=== PATIENT | female | born 1990 | race Two or more races ===

== ENCOUNTER 2016-04-24 12:01 | Emergency (ER) | payer OTHER ==
[~2016-04-24] VITALS: Ht 152.4 cm; Wt 57.6 kg
[~2016-04-24 12:01] MED LIST: AMOX1TAB61 PO; NAPR500T8 PO; OXYC-323 PO; Vantin PO
[2016-04-24 12:56] LABS: BILIRUBIN,URINE NEGATIVE (NEG); GLUCOSE,URINE NEGATIVE (NEG); NITRITE,URINE NEGATIVE (NEG); PROTEIN,URINE 100 mg/dL (NEG-TRACE); UROBILINOGEN,URINE 0.2 mg/dL (0.2 mg/dL)
[2016-04-24 13:09] LABS: BACTERIA,URINE 0 /HPF (0-FEW); WBC,URINE TNTC /HPF (0-4)
[2016-04-24] MEDS ORDERED: IV NORMAL SALINE 1000ML BAG 1,000 ML IV ONE (13:30)
[2016-04-24 14:01] LABS: BASO % 0 % (0-3); EOS % 1 % (0-3); HEMATOCRIT 38.5 % (36.0-47.0); HEMOGLOBIN 12.3 g/dL (12.0-15.5); LYMPH # 1.1 x10^3/uL (1.0-4.8); LYMPH % 10 % (24-48); MEAN CORPUSCULAR HEMOGLOBIN 25 pg (25-35); MEAN CORPUSCULAR HGB CONC 32 g/dL (31-37); MEAN CORPUSCULAR VOLUME 78 fL (79-100); MONO % 4 % (0-9); NEUT % 85 % (31-73); PLATELET COUNT 249 x10^3/uL (140-400); RED BLOOD COUNT 4.96 x10^6/uL (3.50-5.40); RED CELL DISTRIBUTION WIDTH 13.1 % (11.5-14.5); WHITE BLOOD COUNT 10.9 x10^3/uL (4.0-11.0)
[2016-04-24 14:04] LABS: CALCIUM 9.1 mg/dL (8.5-10.1); CREATININE 0.6 mg/dL (0.6-1.0); GFR 122.8; POTASSIUM 3.3 mmol/L (3.5-5.1)
[2016-04-24 15:30] VITALS: BP 104/64
[2016-04-24] MEDS ORDERED: CEPHALEXIN 250 MG CAPSULE PO ONE (15:30)
[2016-04-24] MEDS ORDERED: PHENAZOPYRIDINE 200 MG TABLET. PO ONE (15:30)
[2016-04-24] MEDS ORDERED: METRONIDAZOLE 500 MG TABLET. PO ONE (15:30)
[2016-04-24] MEDS ORDERED: METR500T4 PO (16:03)
[2016-04-24] MEDS ORDERED: PHEN-318 PO (16:03)
[2016-04-24] MEDS ORDERED: CEPH-264 PO (16:03)
--- NOTE | 2016-04-24 17:10 | ED.ADGEN ---
Past Medical History Past Medical History: No Pertinent History, Hypotension, Unknown Additional Past Medical Histor: COMPLICATIONS WITH Past Surgical History: , Hysterectomy Alcohol Use: None Drug Use: None Adult General Chief Complaint Chief Complaint: ABDOMINAL PAIN HPI HPI Patient is a 25 year old woman, history of hysterectomy, with complications including damage to the bladder, resulting in hospitalization for severe sepsis , who presents emergency Department with complaint of suprapubic abdominal pain 1 day, with mild back pain. Patient did not take any medications prior to coming to the ED, she is Montenegrin speaking only, and all discussion carried out via language line apartment leasing specialist. Patient denies any nausea or vomiting, any flank pain, any weakness in this or tingling, complains of pain with urination, frequency, no urgency, positive for cramping pain in the superior pubic region times one day. No fevers or chills, no weakness numbness or tingling, no injuries, no discharge or drainage from the vagina. No concerns for STI exposures or contacts. Patient is status post a hysterectomy. Review of Systems Review of Systems Constitutional: Denies fever or chills. [] Eyes: Denies change in visual acuity. [] HENT: Denies nasal congestion or sore throat. [] Respiratory: Denies cough or shortness of breath. [] Cardiovascular: Denies chest pain or edema. [] GI: Positive for suprapubic abdominal pain, no nausea, vomiting, bloody stools or diarrhea. [] : Dysuria, frequency, 1 day, associated with cramping suprapubic abdominal pain. Musculoskeletal: Denies back pain or joint pain. [] Integument: Denies rash. [] Neurologic: Denies headache, focal weakness or sensory changes. [] Endocrine: Denies polyuria or polydipsia. [] Lymphatic: Denies swollen glands. [] Psychiatric: Denies depression or anxiety. [] Current Medications Current Medications Current Medications Medications (Trade) Dose Ordered Sig/Geni Start Time Stop Time Status Last Admin Dose Admin Cephalexin HCl (Keflex) 500 mg 1X ONCE 04/24/16 15:30 04/24/16 15:31 DC 04/24/16 15:39 500 MG Metronidazole (Flagyl) 500 mg 1X ONCE 04/24/16 15:30 04/24/16 15:31 DC 04/24/16 15:40 500 MG Phenazopyridine HCl (Pyridium) 200 mg 1X ONCE 04/24/16 15:30 04/24/16 15:31 DC 04/24/16 15:39 200 MG Sodium Chloride (Iv Sodium Chloride 0.9% 1000ml Bag) 1,000 ml @ 1,000 mls/hr 1X ONCE 04/24/16 13:30 04/24/16 14:29 DC 04/24/16 14:01 1,000 MLS/HR Allergies Allergies Allergies Coded Allergies Type Severity Reaction Last Updated Verified No Known Drug Allergies 05/29/15 No Physical Exam Physical Exam Constitutional: Well developed, well nourished, no acute distress, non-toxic appearance. [] HENT: Normocephalic, atraumatic, bilateral external ears normal, oropharynx moist, no oral exudates, nose normal. [] Eyes: PERRLA, EOMI, conjunctiva normal, no discharge. [] Neck: Normal range of motion, no tenderness, supple, no stridor. [] Cardiovascular:Heart rate regular rhythm, no murmur, S1, S2, rubs or gallops. [] Lungs & Thorax: Bilateral breath sounds clear to auscultation, no wheezing, rhonchi or rales. No chest tenderness or crepitus. [] Abdomen: Bowel sounds normal, soft, mild tenderness palpation in the suprapubic region, no masses, no pulsatile masses. [] Skin: Warm, dry, no erythema, no rash. [] Back: No tenderness, no CVA tenderness. [] Extremities: No tenderness, no cyanosis, no clubbing, ROM intact, no edema. [] Neurologic: Alert and oriented X 3, normal motor function, normal sensory function, no focal deficits noted. [] Psychologic: Affect normal, judgement normal, mood normal. [] Pelvic examination: Patient is status post hysterectomy, external examination is normal, bimanual examination reveals no tenderness, patient with tenderness to palpation of the superior pubic region only, no pelvic pain. Current Patient Data Vital Signs Vital Signs Date Time Temp Pulse Resp B/P Pulse Ox O2 Delivery O2 Flow Rate FiO2 04/24/16 15:30 88 18 104/64 100 Room Air 04/24/16 12:41 99.4 99.4 Lab Values Laboratory Tests Test 04/24/16 12:30 04/24/16 12:36 04/24/16 12:43 Urine Collection Type Unknown Urine Color Yellow Urine Clarity Cloudy Urine pH 6.0 Urine Specific [place] 1.015 Urine Protein 100mg/dL (NEG-TRACE) Urine Glucose (UA) Negativemg/dL (NEG) Urine Ketones (Stick) >=80mg/dL (NEG) Urine Blood Large (NEG) Urine Nitrite Negative (NEG) Urine Bilirubin Negative (NEG) Urine Urobilinogen Dipstick 0.2mg/dL (0.2 mg/dL) Urine Leukocyte Esterase Large (NEG) Urine RBC 11-20/HPF (0-2) Urine WBC Tntc/HPF (0-4) Urine Bacteria 0/HPF (0-FEW) POC Urine HCG, Qualitative Hcg negative (Negative) White Blood Count 10.9x10^3/uL (4.0-11.0) Red Blood Count 4.96x10^6/uL (3.50-5.40) Hemoglobin 12.3g/dL (12.0-15.5) Hematocrit 38.5% (36.0-47.0) Mean Corpuscular Volume 78fL (79-100) L Mean Corpuscular Hemoglobin 25pg (25-35) Mean Corpuscular Hemoglobin Concent 32g/dL (31-37) Red Cell Distribution Width 13.1% (11.5-14.5) Platelet Count 249x10^3/uL (140-400) Neutrophils (%) (Auto) 85% (31-73) H Lymphocytes (%) (Auto) 10% (24-48) L Monocytes (%) (Auto) 4% (0-9) Eosinophils (%) (Auto) 1% (0-3) Basophils (%) (Auto) 0% (0-3) Neutrophils # (Auto) 9.3x10^3uL (1.8-7.7) H Lymphocytes # (Auto) 1.1x10^3/uL (1.0-4.8) Monocytes # (Auto) 0.5x10^3/uL (0.0-1.1) Eosinophils # (Auto) 0.1x10^3/uL (0.0-0.7) Basophils # (Auto) 0.0x10^3/uL (0.0-0.2) Sodium Level 142mmol/L (136-145) Potassium Level 3.3mmol/L (3.5-5.1) L Chloride Level 105mmol/L (98-107) Carbon Dioxide Level 24mmol/L (21-32) Anion Gap 13 (6-14) Blood Urea Nitrogen 9mg/dL (7-20) Creatinine 0.6mg/dL (0.6-1.0) Estimated GFR (Cockcroft-Gault) 122.8 Glucose Level 91mg/dL (70-99) Calcium Level 9.1mg/dL (8.5-10.1) Laboratory Tests 04/24/16 12:43 Laboratory Tests 04/24/16 12:43 Microbiology 04/24/16 Wet Prep - Final, Complete EKG EKG Rhythm strip: Sinus rhythm, heart rate 84 bpm, no ectopy. As interpreted by me. Radiology/Procedures Radiology/Procedures Not indicated. [] Course & Med Decision Making Course & Med Decision Making Pertinent Labs and Imaging studies reviewed. (See chart for details) Patient's examination is consistent with cystitis, no evidence of pyelonephritis , laboratory studies reveal greater than 40 WBCs, with leuk esterase, although no bacteria is noted. There is no abdominal tenderness aside from superior pubic region, no other pelvic tenderness. Laboratory studies are otherwise unremarkable. Patient is urinating quite frequently, which may contributing. Clue cells noted on wet prep, with concern for bacterial vaginosis. Patient initially with a heart rate in the 90s, received IV fluids, laboratory studies, which not reveal any evidence of systemic infection or other concerning findings. On reevaluation she is feeling better, resting comfortably, remains afebrile, discussed findings with both patient concerning for cystitis, bacterial vaginosis, patient is given first dose of Keflex and metronidazole in the ED without issue. We did discuss concerning symptoms that prompt return to the emergency department for additional evaluation, patient is ambulating without difficulty, and denying pain at this time. Importance of follow-up with her GLASS PULVERIZER EQUIPMENT OPERATOR, Dr. Mcdonald, discussed, patient to see him in approximately 1 week to secure, patient return to the ED at any time for any concerning symptoms. She voiced understanding and agreement with this plan, and was given thorough discharge instructions and prescription information, for Keflex, Pyridium, and metronidazole via the language line apartment leasing specialist. Patient discharged home in stable condition with family with plan as above. Jennifer Disclaimer Dragon Disclaimer This electronic medical record was generated, in whole or in part, using a voice recognition dictation system. Departure Impression: Primary Impression: Urinary tract infection Disposition: HOME, SELF-CARE Condition: IMPROVED Scripts Phenazopyridine Hcl (Pyridium)200 Mg [id number] Mg PO TID PRN BLADDER SPASM #9 TAB Prov:SHARON NEUMANN DO 04/24/16 Metronidazole 500 Mg Tablet1 Tab PO BID #13 TAB 1 tablet by mouth twice daily for 7 days. First dose given in the emergency department. Prov:SHARON NEUMANN DO 04/24/16 Cephalexin (Keflex)500 Mg Capsule1 Cap PO BID #9 CAP 1 tablet by mouth twice daily for 5 days to treat infection. First dose of medication given in the ED. Prov:SHARON NEUMANN DO 04/24/16 Problem Qualifiers Primary Impression: Urinary tract infection Urinary tract infection type: acute cystitis Hematuria presence: without hematuria Qualified Code: N30.00 - Acute cystitis without hematuria SHARON NEUMANN DO Apr 24, 2016 17:10
== END 2016-04-24 16:15 | disposition home or self-care (01) ==
LOC: ER 12:01
DX: N39.0 Urinary tract infection, site not specified (principal); Z90.710 Acquired absence of both cervix and uterus; Z98.890 Other specified postprocedural states
CPT/HCPCS: 36415; 80048; 81001; 81025; 85027; 87086; 96360; 99284; J7030; Q0111

== ENCOUNTER 2016-05-10 17:08 | Emergency (ER) | payer OTHER ==
[~2016-05-10] VITALS: Ht 154.9 cm; Wt 57.6 kg
[~2016-05-10 17:08] MED LIST changes: +CEPH-264 PO; +METR500T4 PO; +PHEN-318 PO
--- NOTE | 2016-05-10 17:44 | PHYS DOC ---
Past Medical History Past Medical History: Hypotension, Unknown Additional Past Medical Histor: COMPLICATIONS WITH Past Surgical History: , Hysterectomy Alcohol Use: None Drug Use: None Adult General Chief Complaint Chief Complaint: HEADACHE HPI HPI Patient is a 25 year old . Patient also states that she is having lower back pain with left flank pain. She denies any urinary symptoms such as frequency urgency or pain with urination denies any nausea vomiting. Review of Systems Review of Systems Constitutional: hx fever at home Eyes: Denies change in visual acuity, redness, or eye pain [] HENT: Denies nasal congestion or sore throat [] Respiratory: Denies cough or shortness of breath [] Cardiovascular: No additional information not addressed in HPI [] GI: Denies abdominal pain, nausea, vomiting, bloody stools or diarrhea [] : Denies dysuria or hematuria [] Musculoskeletal: lower back pain denies joint pain [] Integument: Denies rash or skin lesions [] Neurologic: Denies headache, focal weakness or sensory changes [] Current Medications Current Medications Current Medications Medications (Trade) Dose Ordered Sig/Geni Start Time Stop Time Status Last Admin Dose Admin Acetaminophen (Tylenol) 650 mg 1X ONCE 05/10/16 18:00 05/10/16 18:01 DC 05/10/16 17:57 650 MG Allergies Allergies Allergies Coded Allergies Type Severity Reaction Last Updated Verified No Known Drug Allergies 05/29/15 No Physical Exam Physical Exam Constitutional: Well developed, well nourished, no acute distress, non-toxic appearance. [] HENT: Normocephalic, atraumatic, bilateral external ears normal, oropharynx moist, no oral exudates, nose normal. [] Eyes: PERRLA, EOMI, conjunctiva normal, no discharge. [] Neck: Normal range of motion, no tenderness, supple, no stridor. [] Cardiovascular:Heart rate regular rhythm, no murmur [] Lungs & Thorax: Bilateral breath sounds clear to auscultation [] Abdomen: Bowel sounds normal, soft, no tenderness, no masses, no pulsatile masses. [] Skin: Warm, dry, no erythema, no rash. [] Back: No tenderness, left CVA tenderness. [] Extremities: No tenderness, no cyanosis, no clubbing, ROM intact, no edema. [] Neurologic: Alert and oriented X 3, normal motor function, normal sensory function, no focal deficits noted. [] Psychologic: Affect normal, judgement normal, mood normal. [] Current Patient Data Vital Signs Vital Signs Date Time Temp Pulse Resp B/P Pulse Ox O2 Delivery O2 Flow Rate FiO2 05/10/16 18:17 101 96/51 98 Room Air 05/10/16 17:38 99.1 18 99.1 Lab Values Laboratory Tests Test 05/10/16 17:40 Urine Collection Type Unknown Urine Color Yellow Urine Clarity Cloudy Urine pH 6.0 Urine Specific [place] 1.010 Urine Protein 30mg/dL (NEG-TRACE) Urine Glucose (UA) Negativemg/dL (NEG) Urine Ketones (Stick) 15mg/dL (NEG) Urine Blood Moderate (NEG) Urine Nitrite Negative (NEG) Urine Bilirubin Negative (NEG) Urine Urobilinogen Dipstick 0.2mg/dL (0.2 mg/dL) Urine Leukocyte Esterase Large (NEG) Urine RBC 3-5/HPF (0-2) Urine WBC Tntc/HPF (0-4) Urine Squamous Epithelial Cells Few/LPF Urine Bacteria Moderate/HPF (0-FEW) EKG EKG [] Radiology/Procedures Radiology/Procedures [] Course & Med Decision Making Course & Med Decision Making Pertinent Labs and Imaging studies reviewed. (See chart for details) Patient was provided with Tylenol here in the emergency department which is helped with her headache. Her heart rate was 101. Blood pressure remained stable. Patient's urine was positive for urinary tract infection. She was treated for a UTI in the first part of this month. Patient will be provided with Cipro with recommendations to follow-up with primary care physician in the next 2 days. Also recommended patient to drink plenty of fluids such as water and cranberry juice. Avoid cranberry juice cocktail, carbonated beverages, citrus fruits and alcohol sees her considered irritants to the bladder. Patient agrees with discharge instructions treatment regimens and follow-up recommendations. Signs and symptoms to return back to emergency department has been provided. [] Dragon Disclaimer Dragon Disclaimer This electronic medical record was generated, in whole or in part, using a voice recognition dictation system. Departure Departure Impression: Primary Impression: Urinary tract infection Disposition: HOME, SELF-CARE Condition: STABLE Referrals: NO PCP (PCP) Patient Instructions: Urinary Tract Infection, [id number] Additional Instructions: Home to rest. Tylenol or ibuprofen for fever chills or generalized body aches and discomfort. Medication as prescribed. Drink plenty of fluids such as water and cranberry juice. Avoid cranberry juice cocktail carbonate beverages citrus fruits alcohol and caffeine as these are considered irritants to the bladder. Follow-up with her primary care physician in the next 2 days. Return back to the emergency department if you're not starting to feel better within the next 2 days or if signs and symptoms become worse. Scripts Ciprofloxacin Hcl (Cipro)500 Mg Tablet1 Tab PO BID #14 TAB Prov:KAMALJIT RODRIGEZ APRN 05/10/16 KAMALJIT RODRIGEZ APRN May 10, 2016 17:44
[2016-05-10 17:56] LABS: BILIRUBIN,URINE NEGATIVE (NEG); GLUCOSE,URINE NEGATIVE (NEG); NITRITE,URINE NEGATIVE (NEG); PROTEIN,URINE 30 mg/dL (NEG-TRACE); UROBILINOGEN,URINE 0.2 mg/dL (0.2 mg/dL)
[2016-05-10] MEDS ORDERED: ACETAMINOPHEN 325 MG TABLET. PO ONE (18:00)
[2016-05-10 18:05] LABS: BACTERIA,URINE MODERATE /HPF (0-FEW); SQUAMOUS EPITHELIAL CELL,UR FEW /LPF; WBC,URINE TNTC /HPF (0-4)
[2016-05-10 18:17] VITALS: BP 96/51
[2016-05-10] MEDS ORDERED: CIPR500T94 PO (18:27)
== END 2016-05-10 18:38 | disposition home or self-care (01) ==
LOC: ER 17:08
DX: N39.0 Urinary tract infection, site not specified (principal); I95.9 Hypotension, unspecified; Z90.710 Acquired absence of both cervix and uterus
CPT/HCPCS: 81001; 87086; 99284

== ENCOUNTER 2016-05-11 00:01 | Inpatient (IN) | payer OTHER ==
[~2016-05-11] VITALS: Ht 162.6 cm; Wt 62.1 kg
[2016-05-11] VITALS (9 sets, daily range): BP systolic 84–108; BP diastolic 48–76
[~2016-05-11 00:01] MED LIST changes: +CIPR500T94 PO
[2016-05-11] MEDS ORDERED: IV NORMAL SALINE 1000ML BAG 1,000 ML IV SCH (00:21)
[2016-05-11] MEDS ORDERED: CEFTRIAXONE SODIUM 1 GM in IV NORMAL SALINE 50ML 50 ML IV STA (00:27)
[2016-05-11] MEDS ORDERED: CEFTRIAXONE 1GM IVPB FOR OMNI 50 ML IV ONE (00:30)
[2016-05-11 00:37] LABS: CALCIUM 8.4 mg/dL (8.5-10.1); CREATININE 1.1 mg/dL (0.6-1.0)
[2016-05-11 00:38] LABS: POTASSIUM 2.6 mmol/L (3.5-5.1)
[2016-05-11] MEDS ORDERED: POTASSIUM CHLORIDE 20 MEQ TABLET.ER. PO ONE (01:00)
[2016-05-11] MEDS ORDERED: IV NORMAL SALINE 1000ML BAG 1,000 ML IV ONE (01:30)
[2016-05-11 01:36] LABS: BASO % 0 % (0-3); EOS % 0 % (0-3); HEMATOCRIT 33.8 % (36.0-47.0); HEMOGLOBIN 10.8 g/dL (12.0-15.5); LYMPH # 0.6 x10^3/uL (1.0-4.8); LYMPH % 6 % (24-48); MEAN CORPUSCULAR HEMOGLOBIN 25 pg (25-35); MEAN CORPUSCULAR HGB CONC 32 g/dL (31-37); MEAN CORPUSCULAR VOLUME 78 fL (79-100); MONO % 2 % (0-9); NEUT % 91 % (31-73); PLATELET COUNT 134 x10^3/uL (140-400); RED BLOOD COUNT 4.31 x10^6/uL (3.50-5.40); RED CELL DISTRIBUTION WIDTH 13.3 % (11.5-14.5); WHITE BLOOD COUNT 10.3 x10^3/uL (4.0-11.0)
--- NOTE | 2016-05-11 01:37 | ACF ---
Admission Forms Criteria SEPSIS and OTHER FEBRILE ILLNESS, W/O FOCAL INFECTION Clinical Indications for Admission to Inpatient Care ( Place 'X' for any and all applicable criteria): Admission is indicated for ANY ONE of the following (1)(2)(3)(4): [ ] I. Bacteremia [ ]II. Suspected or identified specific infection requiring hospitalization (eg, meningitis, endocarditis) [X ]III. Hemodynamic instability [ ]IV. Altered mental status [ ]V. Failure or unavailability of outpatient antimicrobial treatment [ ]. Hypoxemia [ ]VII. Seizures [ ]VIII. High-risk febrile neutropenia [ ]IX. Need for parenteral antibiotic in patient who is likely to abuse vascular access device (eg, injection drug user) [A](7) [ ]X. Temperature greater than 104.9 degrees F (40.5 degrees C) (oral) [X ]XI. Inpatient admission required rather than observation care because of ANY ONE of the following: [ ]1) Specific infection identified that is too severe for outpatient treatment or observation care trial [ ]2) Metabolic disorder (eg, hypoglycemia, hyperglycemia, metabolic acidosis) that is severe or persistent [ ]3) Temperature greater than 103.1 degrees F (39.5 degrees C) ( oral) that is not responsive to observation care treatment [ ]4) IV fluid to replace significant ongoing (eg, for over 24 hours) losses (> 3 L/m2 per day) [ ]5) Supplemental oxygen or respiratory treatments for over 24 hours that is performable only in acute inpatient setting [ ]6) Parenteral nutrition regimen need that must be implemented on inpatient basis [ ]7) Strict or protective (eg, laminar flow) isolation [ X]8) Other condition, treatment or monitoring requiring inpatient admission Extended stay beyond goal length of stay may be needed for(1)(3) [ ]a) Sepsis or septic shock(22) [ ]b) Positive blood cultures [ ]c) Insufficient oral intake [ ]d) High-risk febrile neutropenia(29)(30) [ ]e) Continued fever and clinical instability [ ]f) Clinically active comorbid illness (e.g,heart failure, renal failure , diabetes) The original [facility] content created by Joey Nance has been revised. The portions of the content which have been revised are identified through the use of italic text or in bold, and Joey Nance has neither reviewed nor approved the modified material. All other unmodified content is copyright [facility]. Please see references footnoted in the original [facility] edition 2016 Admission Criteria Met?: Yes CHANTEL AGOSTO May 11, 2016 01:37
--- NOTE | 2016-05-11 01:45 | PHYS DOC ---
Past Medical History Past Medical History: No Pertinent History Past Surgical History: , Hysterectomy Alcohol Use: None Drug Use: None Adult General Chief Complaint Chief Complaint: ABDOMINAL PAIN HPI HPI Patient is a 25 year old female who presents with family by EMS for chills. She was seen here today and diagnosed with UTI. She was given cipro. She took her starting dose. She had chills and nbnb emesis x1. She returned for further management. She has dysuria and low back pain. Denies abdominal pain, current nausea, hematuria, diarrhea, constipation, cough, dyspnea, lightheadedness, chest pain, rash, sore throat. Review of Systems Review of Systems Constitutional: Denies fever or chills [] Eyes: Denies change in visual acuity, redness, or eye pain [] HENT: Denies nasal congestion or sore throat [] Respiratory: Denies cough or shortness of breath [] Cardiovascular: No additional information not addressed in HPI [] GI: Denies abdominal pain, nausea, vomiting, bloody stools or diarrhea [] : Denies hematuria [] Musculoskeletal: Denies joint pain [] Integument: Denies rash or skin lesions [] Neurologic: Denies headache, focal weakness or sensory changes [] Endocrine: Denies polyuria or polydipsia [] Current Medications Current Medications Current Medications Medications (Trade) Dose Ordered Sig/Geni Start Time Stop Time Status Last Admin Dose Admin Ceftriaxone Sodium 1 gm/ Sodium Chloride 50 ml @ 100 mls/hr 1X STAT 05/11/16 00:27 05/11/16 00:56 UNV Ceftriaxone Sodium (Rocephin 1gm Ivpb For Omni) 50 ml @ 100 mls/hr 1X ONCE 05/11/16 00:30 05/11/16 00:59 DC 05/11/16 00:34 100 MLS/HR Potassium Chloride 40 meq 40 meq 1X ONCE 05/11/16 01:00 05/11/16 01:01 DC 05/11/16 00:49 40 MEQ Sodium Chloride (Iv Sodium Chloride 0.9% 1000ml Bag) 1,000 ml @ 1,000 mls/hr 1X ONCE 05/11/16 01:30 05/11/16 02:29 DC 05/11/16 01:47 1,000 MLS/HR Allergies Allergies Allergies Coded Allergies Type Severity Reaction Last Updated Verified No Known Drug Allergies 05/29/15 No Physical Exam Physical Exam Constitutional: Well developed, well nourished, no acute distress, non-toxic appearance. [] HENT: Normocephalic, atraumatic, bilateral external ears normal, oropharynx moist, no oral exudates, nose normal. [] Eyes: PERRLA, EOMI. [] Neck: Normal range of motion, supple. [] Cardiovascular:Heart rate regular rhythm [] Lungs & Thorax: Bilateral breath sounds clear to auscultation [] Abdomen: Bowel sounds normal, soft, no tenderness. [] Skin: Warm, dry, no erythema, no rash. [] Back: No tenderness, no CVA tenderness. [] Extremities: No tenderness, ROM intact, no edema. [] Neurologic: Alert and oriented X 3, normal motor function, normal sensory function, no focal deficits noted. [] Psychologic: Affect normal, judgement normal, mood normal. [] Current Patient Data Vital Signs Vital Signs Date Time Temp Pulse Resp B/P Pulse Ox O2 Delivery O2 Flow Rate FiO2 05/11/16 00:41 126 16 81/63 98 Room Air 05/11/16 00:15 98.8 98.8 Lab Values Laboratory Tests Test 05/11/16 00:04 05/11/16 00:14 Sodium Level 140mmol/L (136-145) Potassium Level 2.6mmol/L (3.5-5.1) *L Chloride Level 106mmol/L (98-107) Carbon Dioxide Level 19mmol/L (21-32) L Anion Gap 15 (6-14) H Blood Urea Nitrogen 12mg/dL (7-20) Creatinine 1.1mg/dL (0.6-1.0) H Estimated GFR (Cockcroft-Gault) 61.0 Glucose Level 113mg/dL (70-99) H Calcium Level 8.4mg/dL (8.5-10.1) L White Blood Count 10.3x10^3/uL (4.0-11.0) Red Blood Count 4.31x10^6/uL (3.50-5.40) Hemoglobin 10.8g/dL (12.0-15.5) L Hematocrit 33.8% (36.0-47.0) L Mean Corpuscular Volume 78fL (79-100) L Mean Corpuscular Hemoglobin 25pg (25-35) Mean Corpuscular Hemoglobin Concent 32g/dL (31-37) Red Cell Distribution Width 13.3% (11.5-14.5) Platelet Count 134x10^3/uL (140-400) L Neutrophils (%) (Auto) 91% (31-73) H Lymphocytes (%) (Auto) 6% (24-48) L Monocytes (%) (Auto) 2% (0-9) Eosinophils (%) (Auto) 0% (0-3) Basophils (%) (Auto) 0% (0-3) Neutrophils # (Auto) 9.4x10^3uL (1.8-7.7) H Lymphocytes # (Auto) 0.6x10^3/uL (1.0-4.8) L Monocytes # (Auto) 0.2x10^3/uL (0.0-1.1) Eosinophils # (Auto) 0.0x10^3/uL (0.0-0.7) Basophils # (Auto) 0.0x10^3/uL (0.0-0.2) Platelet Estimate Pending Lactic Acid Level 2.1mmol/L (0.4-2.0) H Laboratory Tests 05/11/16 00:14 Laboratory Tests 05/11/16 00:04 Course & Med Decision Making Course & Med Decision Making Pertinent Labs and Imaging studies reviewed. (See chart for details) Was seen here earlier today and diagnosed with urinary tract infection. She has tachycardia and hypotension concerning for sepsis from pyelonephritis. She was given dose of Rocephin and IV fluids. She will be admitted. Discussed case with Dr. Huang, who will admit. Dragon Disclaimer Dragon Disclaimer This electronic medical record was generated, in whole or in part, using a voice recognition dictation system. Departure Departure Impression: Primary Impression: Sepsis Additional Impression: Pyelonephritis Disposition: ADMITTED INPATIENT Condition: STABLE Referrals: NO PCP (PCP) Problem Qualifiers Primary Impression: Sepsis Sepsis type: sepsis due to unspecified organism Qualified Code: A41.9 - Sepsis, unspecified organism Gaby REYES MD May 11, 2016 01:45
[2016-05-11] MEDS ORDERED: FENTANYL PF 100 MCG/2 ML VIAL. IV PRN (02:00)
[2016-05-11] MEDS ORDERED: POTASSIUM CL 20MEQ-0.45% NACL 1,000 ML IV ONE (02:00)
[2016-05-11] MEDS ORDERED: ONDANSETRON PF 4 MG/2 ML VIAL. IV PRN (02:00)
[2016-05-11 04:43] LABS: PLT ESTIMATE DECREASED (ADEQUATE)
--- NOTE | 2016-05-11 10:06 | EKG ---
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
[2016-05-11] MEDS: ACETAMINOPHEN 325 MG TABLET. PO PRN ×2 (10:21→23:00)
--- NOTE | 2016-05-11 11:56 | HP ---
ADMIT DATE: 05/11/2016 CHIEF COMPLAINT: UTI. HISTORY OF PRESENT ILLNESS: The patient is a 25-year-old woman with past medical history of complicated requiring hysterectomy and bladder reconstruction in the past, who presented with abdominal pain, fevers, chills and left flank pain. She actually had been seen in the ER prior and had been given a script for ciprofloxacin, which she had started. However, symptoms worsened and the patient was admitted for UTI, complicated. PAST SURGICAL HISTORY: Hysterectomy, bladder reconstruction, post-second . FAMILY HISTORY: No known diseases in family. SOCIAL HISTORY: She is , living with her children and . ALLERGIES: No known drug allergies. HOME MEDICATIONS: None. REVIEW OF SYSTEMS: Difficult to obtain as the patient is minimal Singaporean speaking, assistant attorney general not available. PHYSICAL EXAMINATION: VITAL SIGNS: From today show a blood pressure of 108/65, heart rate of 98, respiratory rate is 18. She is afebrile. GENERAL: This is a well-nourished, well-developed 25-year-old woman, alert and oriented, in no acute distress. HEENT: Shows no scleral icterus. NECK: Supple, without any lymphadenopathy. LUNGS: Clear to auscultation bilaterally. CARDIOVASCULAR: Regular rate and rhythm. ABDOMEN: Has positive bowel sounds, soft, nontender. Flank pain on the left to percussion. EXTREMITIES: Show no edema. SKIN: Warm, soft and dry. LABORATORY DATA: CBC with a WBC of 10.3, hemoglobin 10.8, MCV of 78, platelets of 134. Differential with 91% neutrophils. Chemistries with a BUN and creatinine of 12 and 1.1, potassium at 2.6, repeat after repletion of 3.9. Urinalysis from yesterday showed a WBC of TNTC and moderate bacteria, nitrite negative. ASSESSMENT AND PLAN: The patient is a 25-year-old woman with reconstructed bladder, presenting with what appears to be urosepsis and pyelonephritis. She has been started on IV antibiotics. She has stabilized from a cardiovascular standpoint, will transfer up to the floor. Hypokalemia will be monitored. She is tolerating p.o. repletion and has responded. Monitor with further IV fluids. The patient is anemic with microcytosis, suspect iron deficiency. We will obtain iron labs, replete as indicated. VICENTE RAMIREZ MD DR: Terri JOB#: [id number] / [id number] JANEY
[2016-05-11] MEDS: HYDROCODONE/APAP 5/325MG TABLET. PO PRN ×2 (16:04→21:44)
[2016-05-11] MEDS: CEFTRIAXONE SODIUM 1 GM in IV NORMAL SALINE 50ML 50 ML IV SCH (20:21)
[2016-05-12 03:00] VITALS: BP 92/52
[2016-05-12] MEDS: HYDROCODONE/APAP 5/325MG TABLET. PO PRN ×2 (04:39→20:06)
[2016-05-12 07:00] VITALS: BP 102/57
--- NOTE | 2016-05-12 09:31 | PDOC ---
Infectious Disease Note Vital Sign Vital Signs Vital Signs Date Time Temp Pulse Resp B/P Pulse Ox O2 Delivery O2 Flow Rate FiO2 05/12/16 05:39 99 Room Air 05/12/16 03:00 98.2 79 18 92/52 98.2 Labs Lab Laboratory Tests Test 05/11/16 09:55 Potassium Level 3.9mmol/L (3.5-5.1) Objective Assessment Fever UTI/Pylonephritis h/o fistula Plan Plan of Care rocephine check influenza check cultures d/w AMARI Francis MD May 12, 2016 09:31
[2016-05-12] MEDS ORDERED: IOHEXOL 240 MG/ML 50ML VIAL. PO ONE (09:45)
[2016-05-12] MEDS ORDERED: IOHEXOL 300 MG/ML 75 ML VIAL IV ONE (09:45)
[2016-05-12] MEDS ORDERED: CONTRAST GIVEN MC PRN (10:00)
[2016-05-12 11:00] VITALS: BP 104/59
[2016-05-12 11:01] LABS: OBC FLU VALID
--- NOTE | 2016-05-12 12:42 | RAD ---
Indication fever. Assess for occult abscess or inflammatory process. Axial images through the abdomen and pelvis were obtained. Both IV and oral contrast were administered. Proximal 75 cc of Omnipaque 300 was administered intravenously. Note is made of a previous examination 06/22/2015. The lung bases are clear. The liver and spleen appear unremarkable. The gallbladder appears grossly normal. No pancreatic abnormality is seen. There are no adrenal masses. There are changes involving both kidneys most compatible with underlying infection, bilateral pyelonephritis. There is diminished enhancement of the superior pole of the left kidney and multiple cortical areas of diminished enhancement in the right kidney. Significant central or retroperitoneal adenopathy is not seen. No additional finding in the abdomen is apparent. In the pelvis there is probably a trace amount of free fluid. An additional finding is not seen. IMPRESSION: Findings involving the kidneys, right greater than left, suggesting bilateral pyelonephritis. Trace amount of free fluid in the dependent portion of the pelvis PQRS Compliance Statement: One or more of the following individualized dose reduction techniques were utilized for this examination: 1. Automated exposure control 2. Adjustment of the mA and/or kV according to patient size 3. Use of iterative reconstruction technique
[2016-05-12] MEDS: ACETAMINOPHEN 325 MG TABLET. PO PRN (12:44)
--- NOTE | 2016-05-12 13:41 | PDOC ---
PROGRESS NOTES Chief Complaint Chief Complaint sepsis UTI pyelonephritis flank pain microcytic anemia, History of Present Illness History of Present Illness recheck labs and iron studies hypokelamia corrected cont current ID consult check for FLU Vitals Vitals Vital Signs Date Time Temp Pulse Resp B/P Pulse Ox O2 Delivery O2 Flow Rate FiO2 05/12/16 11:00 101.9 107 19 104/59 95 Room Air 101.9 Physical Exam General: Alert, Oriented X3, Cooperative Heart: Regular rate Lungs: Clear Abdomen: Normal bowel sounds, Soft Extremities: No clubbing, No cyanosis Skin: No breakdown Labs LABS Laboratory Tests Test 05/12/16 10:10 05/12/16 10:20 Procalcitonin 37.37ng/mL (0.00-0.10) Influenza Type A Antigen Negative (NEGATIVE) Influenza Type B Antigen Negative (NEGATIVE) Assessment and Plan Assessmemt and Plan Problems Medical Problems: (1) Pyelonephritis Status: Acute (2) Sepsis Status: Acute (3) UTI (urinary tract infection) Status: Acute Problems: Comment Review of Relevant I have reviewed the following items nila (where applicable) has been applied. Labs Laboratory Tests Test 05/11/16 00:04 05/11/16 00:14 05/11/16 03:47 05/11/16 06:00 Sodium Level 140mmol/L (136-145) Potassium Level 2.6mmol/L (3.5-5.1) Chloride Level 106mmol/L (98-107) Carbon Dioxide Level 19mmol/L (21-32) Anion Gap 15 (6-14) Blood Urea Nitrogen 12mg/dL (7-20) Creatinine 1.1mg/dL (0.6-1.0) Estimated GFR (Cockcroft-Gault) 61.0 Glucose Level 113mg/dL (70-99) Calcium Level 8.4mg/dL (8.5-10.1) White Blood Count 10.3x10^3/uL (4.0-11.0) Red Blood Count 4.31x10^6/uL (3.50-5.40) Hemoglobin 10.8g/dL (12.0-15.5) Hematocrit 33.8% (36.0-47.0) Mean Corpuscular Volume 78fL (79-100) Mean Corpuscular Hemoglobin 25pg (25-35) Mean Corpuscular Hemoglobin Concent 32g/dL (31-37) Red Cell Distribution Width 13.3% (11.5-14.5) Platelet Count 134x10^3/uL (140-400) Neutrophils (%) (Auto) 91% (31-73) Lymphocytes (%) (Auto) 6% (24-48) Monocytes (%) (Auto) 2% (0-9) Eosinophils (%) (Auto) 0% (0-3) Basophils (%) (Auto) 0% (0-3) Neutrophils # (Auto) 9.4x10^3uL (1.8-7.7) Lymphocytes # (Auto) 0.6x10^3/uL (1.0-4.8) Monocytes # (Auto) 0.2x10^3/uL (0.0-1.1) Eosinophils # (Auto) 0.0x10^3/uL (0.0-0.7) Basophils # (Auto) 0.0x10^3/uL (0.0-0.2) Segmented Neutrophils % 69% (35-66) Band Neutrophils % 10% (0-9) Lymphocytes % 21% (24-48) Platelet Estimate Decreased (ADEQUATE) Lactic Acid Level 2.1mmol/L (0.4-2.0) 0.8mmol/L (0.4-2.0) Nasal Screen MRSA (PCR) Negative (Negative) Test 05/11/16 09:55 05/12/16 10:10 05/12/16 10:20 Potassium Level 3.9mmol/L (3.5-5.1) Procalcitonin 37.37ng/mL (0.00-0.10) Influenza Type A Antigen Negative (NEGATIVE) Influenza Type B Antigen Negative (NEGATIVE) Laboratory Tests Test 05/12/16 10:10 05/12/16 10:20 Procalcitonin 37.37ng/mL (0.00-0.10) Influenza Type A Antigen Negative (NEGATIVE) Influenza Type B Antigen Negative (NEGATIVE) Microbiology 05/11/16 Blood Culture - Preliminary, Resulted NO GROWTH AFTER 1 DAY Medications Current Medications Sodium Chloride 1,000 ml @ 1,000 mls/hr Q1H IV Last administered on 05/11/16t 00:25; Start 05/11/16 at 00:21; Stop 05/11/16 at 01:20; Status DC Ceftriaxone Sodium 1 gm/ Sodium Chloride 50 ml @ 100 mls/hr 1X STAT IV ; Start 05/11/16 at 00:27; Stop 05/11/16 at 00:56; Status UNV Ceftriaxone Sodium (Rocephin 1gm Ivpb For Omni) 50 ml @ 100 mls/hr 1X ONCE IV Last administered on 05/11/16 00:34; Start 05/11/16 at 00:30; Stop 05/11/16 at 00:59; Status DC Potassium Chloride 40 meq 40 meq 1X ONCE PO Last administered on 05/11/16 00: 49; Start 05/11/16 at 01:00; Stop 05/11/16 at 01:01; Status DC Sodium Chloride (Iv Sodium Chloride 0.9% 1000ml Bag) 1,000 ml @ 1,000 mls/hr 1X ONCE IV Last administered on 05/11/16 01:47; Start 05/11/16 at 01:30; Stop 05/11/16 at 02:29; Status DC Ondansetron HCl (Zofran) 4 mg PRN Q8HRS PRN IV NAUSEA/VOMITING; Start 05/11/16 at 02:00; Stop 05/12/16 at 01:59; Status DC Fentanyl Citrate (Fentanyl 2ml Vial) 50 mcg PRN Q2HR PRN IV SEVERE PAIN; Start 05/11/16 at 02:00; Stop 05/11/16 at 10:56; Status DC Acetaminophen 650 mg 650 mg PRN Q4HRS PRN PO FEVER Last administered on 23:00; Start 05/11/16 at 02:00; Stop 05/12/16 at 01:59; Status DC Potassium Chloride/Sodium Chloride (KCl 20 Meq-0.45% Nacl) 1,000 ml @ 150 mls/ hr 1X ONCE IV Last administered on 05/11/16 02:04; Start 05/11/16 at 02:00; Stop 05/11/16 at 08:39; Status DC Acetaminophen/ Hydrocodone Bitart 1 tab 1 tab PRN Q4HRS PRN PO PAIN Last administered on 05/12/16 04:39; Start 05/11/16 at 11:00 Ceftriaxone Sodium/Sodium Chloride (Rocephin/Iv Sodium Chloride 0.9% 50ml) 50 ml @ 100 mls/hr Q24H IV Last administered on 05/11/16 20:21; Start 05/11/16 at 21:00 Acetaminophen (Tylenol) 650 mg PRN Q6HRS PRN PO MILD PAIN / TEMP Last administered on 05/12/16 12:44; Start 05/12/16 at 05:45 Iohexol (Omnipaque 240 Mg/ml) 30 ml 1X ONCE PO ; Start 05/12/16 at 09:45; Stop 05/12/16 at 09:48; Status DC Iohexol (Omnipaque 300 Mg/ml) 75 ml 1X ONCE IV ; Start 05/12/16 at 09:45; Stop 05/12/16 at 09:48; Status DC Info (Do NOT chart on this entry -- for MONITORING) 1 each PRN DAILY PRN MC SEE COMMENTS; Start 05/12/16 at 10:00; Stop 05/14/16 at 09:59 Active Scripts Active Cipro (Ciprofloxacin Hcl) 500 Mg Tablet 1 Tab PO BID Pyridium (Phenazopyridine Hcl) 200 Mg Tablet 200 Mg PO TID PRN Metronidazole 500 Mg Tablet 1 Tab PO BID 1 tablet by mouth twice daily for 7 days. First dose given in the emergency department. Keflex (Cephalexin) 500 Mg Capsule 1 Cap PO BID 1 tablet by mouth twice daily for 5 days to treat infection. First dose of medication given in the ED. [Vantin] 200 Mg PO BID Naproxen 500 Mg Tablet.dr 1 Tab PO BID Percocet 5-325 Mg Tablet (Oxycodone/Acetaminophen) 1 Each Tablet 1-2 Tab PO Q4- 6HRS Augmentin 875-125 Tablet (Amoxicillin/Potassium Clav) 1 Each Tablet 1 Tab PO BID Vitals/I & O Vital Sign - Last 24 Hours 05/11/16 05/11/16 05/11/16 05/11/16 14:37 16:04 19:00 19:56 Temp 98.1 101.3 98.1 101.3 Pulse 96 81 Resp 17 18 B/P 94/59 103/76 Pulse Ox 98 95 O2 Delivery Room Air Room Air Room Air Room Air 05/11/16 05/11/16 05/11/16 05/12/16 21:44 22:44 22:57 03:00 Temp 103.0 102.0 98.2 103.0 102.0 98.2 Pulse 114 79 Resp 18 18 B/P 91/55 92/52 Pulse Ox 95 95 99 O2 Delivery Room Air Room Air Room Air 05/12/16 05/12/16 05/12/16 05/12/16 04:39 05:39 07:00 08:00 Temp 101.9 101.9 Pulse 117 Resp 20 B/P 102/57 Pulse Ox 99 99 95 O2 Delivery Room Air Room Air Room Air Room Air 05/12/16 11:00 Temp 101.9 101.9 Pulse 107 Resp 19 B/P 104/59 Pulse Ox 95 O2 Delivery Room Air Intake and Output 05/11/16 05/11/16 05/12/16 15:00 23:00 07:00 Intake Total 600 ml 720 ml Balance 600 ml 720 ml ZHENG MELARA MD May 12, 2016 13:41
[2016-05-12 15:00] VITALS: BP 110/58
[2016-05-12 19:00] VITALS: BP 109/76
[2016-05-12] MEDS: CEFTRIAXONE SODIUM 1 GM in IV NORMAL SALINE 50ML 50 ML IV SCH (20:06)
[2016-05-12 23:00] VITALS: BP 99/63
--- NOTE | 2016-05-12 23:01 | CONS ---
DATE OF CONSULTATION: 05/12/2016 REQUESTING PHYSICIAN: Dr. Kenyon. REASON FOR CONSULTATION: Pyelonephritis. HISTORY OF PRESENT ILLNESS: This is a 25-year-old, ____ , I believe, female who has had complicated requiring hysterectomy and bladder injury reconstruction as well as fistula in the past who was seen in the ER early part of this month with UTI. The patient was put on antibiotics and she actually came back on and she again came back with not improving. The patient had 103 fever last night. The patient has been put on Rocephin. The patient was given ciprofloxacin on from the ER. The patient is comfortable. Denies any nausea, vomiting, diarrhea. Denies any chest pain, shortness of breath, abdominal pain. 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 PAST MEDICAL HISTORY: Positive for mainly complicated requiring hysterectomy and bladder injury which is repaired as well as fistula which eventually resolved. SOCIAL HISTORY: Negative for smoking, alcohol, illicit drug use. ALLERGIES: No known drug allergies. CURRENT MEDICATIONS: Reviewed. The patient is on Rocephin. REVIEW OF SYSTEMS: As per HPI, all other systems reviewed are negative. PHYSICAL EXAMINATION: GENERAL: Alert, oriented female, not in any distress. VITAL SIGNS: Temperature normal with T-max 103. Rest of the vitals are stable. HEENT: NAD. NECK: Supple, no JVP, no lymphadenopathy. LUNGS: Clear. HEART: S1, S2 regular. ABDOMEN: Benign. EXTREMITIES: No edema, cyanosis. SKIN: Unremarkable. NEUROLOGIC: The patient is neurologically intact. LABORATORY DATA: White count is normal. BUN and creatinine is normal, although creatinine bumped to 1.1 from 0.6 earlier this month. Urinalysis showed too numerous to count WBC. Urine culture is pending. The culture from the early part of this month was E. coli. Blood culture is so far negative. Chest x-ray is not done or CT. No other investigation is done. IMPRESSION: 1. Urinary tract infection with possible early sepsis. 2. Possible pyelonephritis. 3. Fever. RECOMMENDATION: We would continue Rocephin. Check influenza screen. Also check CT abdomen and pelvis with contrast. Supportive care. We will check the cultures and we will continue to follow. Thank you very much, Dr. Kenyon for giving me the opportunity to participate in this patient's care. AMARI TRIMBLE MD DR: XIOMARA/bindu JOB#: [id number] / [id number]
[2016-05-13 03:00] VITALS: BP 107/65
[2016-05-13] MEDS: ACETAMINOPHEN 325 MG TABLET. PO PRN ×3 (03:21→21:51)
[2016-05-13 03:50] LABS: BASO % 0 % (0-3); EOS % 0 % (0-3); HEMATOCRIT 30.2 % (36.0-47.0); HEMOGLOBIN 9.8 g/dL (12.0-15.5); LYMPH % 17 % (24-48); MEAN CORPUSCULAR HEMOGLOBIN 25 pg (25-35); MEAN CORPUSCULAR HGB CONC 33 g/dL (31-37); MEAN CORPUSCULAR VOLUME 77 fL (79-100); MONO % 9 % (0-9); NEUT % 74 % (31-73); PLATELET COUNT 159 x10^3/uL (140-400); RED BLOOD COUNT 3.93 x10^6/uL (3.50-5.40); RED CELL DISTRIBUTION WIDTH 13.8 % (11.5-14.5); WHITE BLOOD COUNT 5.8 x10^3/uL (4.0-11.0)
[2016-05-13 04:13] LABS: ALBUMIN 2.4 g/dL (3.4-5.0); ALBUMIN/GLOBULIN RATIO 0.6 (1.0-1.7); CALCIUM 8.4 mg/dL (8.5-10.1); CREATININE 0.8 mg/dL (0.6-1.0); GFR 88.1; TOTAL BILIRUBIN 0.2 mg/dL (0.2-1.0); TOTAL PROTEIN 6.6 g/dL (6.4-8.2)
[2016-05-13 04:21] LABS: POTASSIUM 2.8 mmol/L (3.5-5.1)
[2016-05-13 04:28] LABS: % SAT IRON 4 % (15-34); IRON,SERUM 8 ug/dL (50-170)
[2016-05-13] MEDS ORDERED: POTASSIUM CHLORIDE 20 MEQ TABLET.ER. PO ONE ×2 (05:45→11:00)
[2016-05-13 07:00] VITALS: BP 103/67
--- NOTE | 2016-05-13 09:26 | PDOC ---
Infectious Disease Note Subjective Subjective pt feeling better ROS ROS GEN: Denies fevers, chills, sweats HEENT: Denies blurred vision, sore throat CV: Denies chest pain RESP: Denies shortness of air, cough GI: Denies n/v/d NEURO: Denies confusion, dizziness MSK: Denies weakness, joint pain/swelling Vital Sign Vital Signs Vital Signs Date Time Temp Pulse Resp B/P Pulse Ox O2 Delivery O2 Flow Rate FiO2 05/13/16 07:00 97.9 72 16 103/67 98 Room Air 97.9 Physical Exam PHYSICAL EXAM GENERAL: NAD, Alert HEENT: PERRL, OC/OP NECK: Supple, no JVD, no LN LUNGS: Clear HEART: S1S2, no gallop, no murmur ABD: Soft, NT, no organomegaly, no rebound EXT: No edema, no cyanosis DRAW OFF WORKER: Alert, oriented x 3, no focal neurologic deficit SKIN: No rash IV: ok Labs Lab Laboratory Tests Test 05/12/16 10:10 05/12/16 10:20 05/13/16 03:25 Procalcitonin 37.37ng/mL (0.00-0.10) Influenza Type A Antigen Negative (NEGATIVE) Influenza Type B Antigen Negative (NEGATIVE) White Blood Count 5.8x10^3/uL (4.0-11.0) Red Blood Count 3.93x10^6/uL (3.50-5.40) Hemoglobin 9.8g/dL (12.0-15.5) Hematocrit 30.2% (36.0-47.0) Mean Corpuscular Volume 77fL (79-100) Mean Corpuscular Hemoglobin 25pg (25-35) Mean Corpuscular Hemoglobin Concent 33g/dL (31-37) Red Cell Distribution Width 13.8% (11.5-14.5) Platelet Count 159x10^3/uL (140-400) Neutrophils (%) (Auto) 74% (31-73) Lymphocytes (%) (Auto) 17% (24-48) Monocytes (%) (Auto) 9% (0-9) Eosinophils (%) (Auto) 0% (0-3) Basophils (%) (Auto) 0% (0-3) Neutrophils # (Auto) 4.3x10^3uL (1.8-7.7) Lymphocytes # (Auto) 1.0x10^3/uL (1.0-4.8) Monocytes # (Auto) 0.5x10^3/uL (0.0-1.1) Eosinophils # (Auto) 0.0x10^3/uL (0.0-0.7) Basophils # (Auto) 0.0x10^3/uL (0.0-0.2) Sodium Level 138mmol/L (136-145) Potassium Level 2.8mmol/L (3.5-5.1) Chloride Level 103mmol/L (98-107) Carbon Dioxide Level 23mmol/L (21-32) Anion Gap 12 (6-14) Blood Urea Nitrogen 5mg/dL (7-20) Creatinine 0.8mg/dL (0.6-1.0) Estimated GFR (Cockcroft-Gault) 88.1 BUN/Creatinine Ratio 6 (6-20) Glucose Level 112mg/dL (70-99) Calcium Level 8.4mg/dL (8.5-10.1) Iron Level 8ug/dL (50-170) Total Iron Binding Capacity 178ug/dL (250-450) Iron Saturation 4% (15-34) Total Bilirubin 0.2mg/dL (0.2-1.0) Aspartate Amino Transf (AST/SGOT) 16U/L (15-37) Alanine Aminotransferase (ALT/SGPT) 36U/L (14-59) Alkaline Phosphatase 109U/L (46-116) Total Protein 6.6g/dL (6.4-8.2) Albumin 2.4g/dL (3.4-5.0) Albumin/Globulin Ratio 0.6 (1.0-1.7) Micro G neg daisy Objective Assessment Fever UTI/Pylonephritis h/o fistula Plan Plan of Care meropenem check cultures d/w AMARI Francis MD May 13, 2016 09:26
[2016-05-13] MEDS ORDERED: MAGNESIUM SULFATE 2GM 50 ML IV ONE (11:00)
[2016-05-13 11:19] VITALS: BP 108/73
[2016-05-13 14:10] LABS: BILIRUBIN,URINE NEGATIVE (NEG); GLUCOSE,URINE NEGATIVE (NEG); NITRITE,URINE NEGATIVE (NEG); PH,URINE 6.5; PROTEIN,URINE NEGATIVE (NEG-TRACE); UROBILINOGEN,URINE 0.2 mg/dL (0.2 mg/dL)
[2016-05-13 14:20] LABS: BACTERIA,URINE 0 /HPF (0-FEW); RBC,URINE RARE /HPF (0-2); SQUAMOUS EPITHELIAL CELL,UR FEW /LPF
[2016-05-13 15:16] VITALS: BP 108/72
[2016-05-13] MEDS: MEROPENEM 500 MG in IV NORMAL SALINE 50ML 50 ML IV SCH ×2 (15:26→21:50)
--- NOTE | 2016-05-13 15:37 | PDOC ---
PROGRESS NOTES Chief Complaint Chief Complaint sepsis UTI pyelonephritis flank pain microcytic anemia, History of Present Illness History of Present Illness ongoing feveres hypokelamia return ID consult - abx modified spoke to patient by biofuels technology manager phone Vitals Vitals Vital Signs Date Time Temp Pulse Resp B/P Pulse Ox O2 Delivery O2 Flow Rate FiO2 05/13/16 15:16 101.7 91 18 108/72 98 Room Air 101.7 Physical Exam General: Alert, Oriented X3, Cooperative Heart: Regular rate Lungs: Clear Abdomen: Normal bowel sounds, Soft Extremities: No clubbing, No cyanosis Skin: No breakdown Labs LABS Laboratory Tests Test 05/13/16 03:25 05/13/16 14:00 White Blood Count 5.8x10^3/uL (4.0-11.0) Red Blood Count 3.93x10^6/uL (3.50-5.40) Hemoglobin 9.8g/dL (12.0-15.5) Hematocrit 30.2% (36.0-47.0) Mean Corpuscular Volume 77fL (79-100) Mean Corpuscular Hemoglobin 25pg (25-35) Mean Corpuscular Hemoglobin Concent 33g/dL (31-37) Red Cell Distribution Width 13.8% (11.5-14.5) Platelet Count 159x10^3/uL (140-400) Neutrophils (%) (Auto) 74% (31-73) Lymphocytes (%) (Auto) 17% (24-48) Monocytes (%) (Auto) 9% (0-9) Eosinophils (%) (Auto) 0% (0-3) Basophils (%) (Auto) 0% (0-3) Neutrophils # (Auto) 4.3x10^3uL (1.8-7.7) Lymphocytes # (Auto) 1.0x10^3/uL (1.0-4.8) Monocytes # (Auto) 0.5x10^3/uL (0.0-1.1) Eosinophils # (Auto) 0.0x10^3/uL (0.0-0.7) Basophils # (Auto) 0.0x10^3/uL (0.0-0.2) Sodium Level 138mmol/L (136-145) Potassium Level 2.8mmol/L (3.5-5.1) Chloride Level 103mmol/L (98-107) Carbon Dioxide Level 23mmol/L (21-32) Anion Gap 12 (6-14) Blood Urea Nitrogen 5mg/dL (7-20) Creatinine 0.8mg/dL (0.6-1.0) Estimated GFR (Cockcroft-Gault) 88.1 BUN/Creatinine Ratio 6 (6-20) Glucose Level 112mg/dL (70-99) Calcium Level 8.4mg/dL (8.5-10.1) Iron Level 8ug/dL (50-170) Total Iron Binding Capacity 178ug/dL (250-450) Iron Saturation 4% (15-34) Total Bilirubin 0.2mg/dL (0.2-1.0) Aspartate Amino Transf (AST/SGOT) 16U/L (15-37) Alanine Aminotransferase (ALT/SGPT) 36U/L (14-59) Alkaline Phosphatase 109U/L (46-116) Total Protein 6.6g/dL (6.4-8.2) Albumin 2.4g/dL (3.4-5.0) Albumin/Globulin Ratio 0.6 (1.0-1.7) Urine Collection Type Unknown Urine Color Yellow Urine Clarity Clear Urine pH 6.5 Urine Specific Murphy 1.010 Urine Protein Negativemg/dL (NEG-TRACE) Urine Glucose (UA) Negativemg/dL (NEG) Urine Ketones (Stick) Tracemg/dL (NEG) Urine Blood Small (NEG) Urine Nitrite Negative (NEG) Urine Bilirubin Negative (NEG) Urine Urobilinogen Dipstick 0.2mg/dL (0.2 mg/dL) Urine Leukocyte Esterase Small (NEG) Urine RBC Rare/HPF (0-2) Urine WBC 1-4/HPF (0-4) Urine Squamous Epithelial Cells Few/LPF Urine Bacteria 0/HPF (0-FEW) Review of Systems Review of Systems no n.vd she reports feeling well Assessment and Plan Assessmemt and Plan Problems Medical Problems: (1) Pyelonephritis Status: Acute (2) Sepsis Status: Acute (3) UTI (urinary tract infection) Status: Acute Problems: Comment Review of Relevant I have reviewed the following items nila (where applicable) has been applied. Labs Laboratory Tests Test 05/12/16 10:10 05/12/16 10:20 05/13/16 03:25 05/13/16 14:00 Procalcitonin 37.37ng/mL (0.00-0.10) Influenza Type A Antigen Negative (NEGATIVE) Influenza Type B Antigen Negative (NEGATIVE) White Blood Count 5.8x10^3/uL (4.0-11.0) Red Blood Count 3.93x10^6/uL (3.50-5.40) Hemoglobin 9.8g/dL (12.0-15.5) Hematocrit 30.2% (36.0-47.0) Mean Corpuscular Volume 77fL (79-100) Mean Corpuscular Hemoglobin 25pg (25-35) Mean Corpuscular Hemoglobin Concent 33g/dL (31-37) Red Cell Distribution Width 13.8% (11.5-14.5) Platelet Count 159x10^3/uL (140-400) Neutrophils (%) (Auto) 74% (31-73) Lymphocytes (%) (Auto) 17% (24-48) Monocytes (%) (Auto) 9% (0-9) Eosinophils (%) (Auto) 0% (0-3) Basophils (%) (Auto) 0% (0-3) Neutrophils # (Auto) 4.3x10^3uL (1.8-7.7) Lymphocytes # (Auto) 1.0x10^3/uL (1.0-4.8) Monocytes # (Auto) 0.5x10^3/uL (0.0-1.1) Eosinophils # (Auto) 0.0x10^3/uL (0.0-0.7) Basophils # (Auto) 0.0x10^3/uL (0.0-0.2) Sodium Level 138mmol/L (136-145) Potassium Level 2.8mmol/L (3.5-5.1) Chloride Level 103mmol/L (98-107) Carbon Dioxide Level 23mmol/L (21-32) Anion Gap 12 (6-14) Blood Urea Nitrogen 5mg/dL (7-20) Creatinine 0.8mg/dL (0.6-1.0) Estimated GFR (Cockcroft-Gault) 88.1 BUN/Creatinine Ratio 6 (6-20) Glucose Level 112mg/dL (70-99) Calcium Level 8.4mg/dL (8.5-10.1) Iron Level 8ug/dL (50-170) Total Iron Binding Capacity 178ug/dL (250-450) Iron Saturation 4% (15-34) Total Bilirubin 0.2mg/dL (0.2-1.0) Aspartate Amino Transf (AST/SGOT) 16U/L (15-37) Alanine Aminotransferase (ALT/SGPT) 36U/L (14-59) Alkaline Phosphatase 109U/L (46-116) Total Protein 6.6g/dL (6.4-8.2) Albumin 2.4g/dL (3.4-5.0) Albumin/Globulin Ratio 0.6 (1.0-1.7) Urine Collection Type Unknown Urine Color Yellow Urine Clarity Clear Urine pH 6.5 Urine Specific Murphy 1.010 Urine Protein Negativemg/dL (NEG-TRACE) Urine Glucose (UA) Negativemg/dL (NEG) Urine Ketones (Stick) Tracemg/dL (NEG) Urine Blood Small (NEG) Urine Nitrite Negative (NEG) Urine Bilirubin Negative (NEG) Urine Urobilinogen Dipstick 0.2mg/dL (0.2 mg/dL) Urine Leukocyte Esterase Small (NEG) Urine RBC Rare/HPF (0-2) Urine WBC 1-4/HPF (0-4) Urine Squamous Epithelial Cells Few/LPF Urine Bacteria 0/HPF (0-FEW) Laboratory Tests Test 05/13/16 03:25 05/13/16 14:00 White Blood Count 5.8x10^3/uL (4.0-11.0) Red Blood Count 3.93x10^6/uL (3.50-5.40) Hemoglobin 9.8g/dL (12.0-15.5) Hematocrit 30.2% (36.0-47.0) Mean Corpuscular Volume 77fL (79-100) Mean Corpuscular Hemoglobin 25pg (25-35) Mean Corpuscular Hemoglobin Concent 33g/dL (31-37) Red Cell Distribution Width 13.8% (11.5-14.5) Platelet Count 159x10^3/uL (140-400) Neutrophils (%) (Auto) 74% (31-73) Lymphocytes (%) (Auto) 17% (24-48) Monocytes (%) (Auto) 9% (0-9) Eosinophils (%) (Auto) 0% (0-3) Basophils (%) (Auto) 0% (0-3) Neutrophils # (Auto) 4.3x10^3uL (1.8-7.7) Lymphocytes # (Auto) 1.0x10^3/uL (1.0-4.8) Monocytes # (Auto) 0.5x10^3/uL (0.0-1.1) Eosinophils # (Auto) 0.0x10^3/uL (0.0-0.7) Basophils # (Auto) 0.0x10^3/uL (0.0-0.2) Sodium Level 138mmol/L (136-145) Potassium Level 2.8mmol/L (3.5-5.1) Chloride Level 103mmol/L (98-107) Carbon Dioxide Level 23mmol/L (21-32) Anion Gap 12 (6-14) Blood Urea Nitrogen 5mg/dL (7-20) Creatinine 0.8mg/dL (0.6-1.0) Estimated GFR (Cockcroft-Gault) 88.1 BUN/Creatinine Ratio 6 (6-20) Glucose Level 112mg/dL (70-99) Calcium Level 8.4mg/dL (8.5-10.1) Iron Level 8ug/dL (50-170) Total Iron Binding Capacity 178ug/dL (250-450) Iron Saturation 4% (15-34) Total Bilirubin 0.2mg/dL (0.2-1.0) Aspartate Amino Transf (AST/SGOT) 16U/L (15-37) Alanine Aminotransferase (ALT/SGPT) 36U/L (14-59) Alkaline Phosphatase 109U/L (46-116) Total Protein 6.6g/dL (6.4-8.2) Albumin 2.4g/dL (3.4-5.0) Albumin/Globulin Ratio 0.6 (1.0-1.7) Urine Collection Type Unknown Urine Color Yellow Urine Clarity Clear Urine pH 6.5 Urine Specific Murphy 1.010 Urine Protein Negativemg/dL (NEG-TRACE) Urine Glucose (UA) Negativemg/dL (NEG) Urine Ketones (Stick) Tracemg/dL (NEG) Urine Blood Small (NEG) Urine Nitrite Negative (NEG) Urine Bilirubin Negative (NEG) Urine Urobilinogen Dipstick 0.2mg/dL (0.2 mg/dL) Urine Leukocyte Esterase Small (NEG) Urine RBC Rare/HPF (0-2) Urine WBC 1-4/HPF (0-4) Urine Squamous Epithelial Cells Few/LPF Urine Bacteria 0/HPF (0-FEW) Microbiology 05/11/16 Blood Culture - Final, Complete Medications Current Medications Sodium Chloride 1,000 ml @ 1,000 mls/hr Q1H IV Last administered on 05/11/16 00:25; Start 05/11/16 at 00:21; Stop 05/11/16 at 01:20; Status DC Ceftriaxone Sodium 1 gm/ Sodium Chloride 50 ml @ 100 mls/hr 1X STAT IV ; Start 05/11/16 at 00:27; Stop 05/11/16 at 00:56; Status UNV Ceftriaxone Sodium (Rocephin 1gm Ivpb For Omni) 50 ml @ 100 mls/hr 1X ONCE IV Last administered on 05/11/16 00:34; Start 05/11/16 at 00:30; Stop 05/11/16 at 00:59; Status DC Potassium Chloride 40 meq 40 meq 1X ONCE PO Last administered on 05/11/16 00: 49; Start 05/11/16 at 01:00; Stop 05/11/16 at 01:01; Status DC Sodium Chloride (Iv Sodium Chloride 0.9% 1000ml Bag) 1,000 ml @ 1,000 mls/hr 1X ONCE IV Last administered on 05/11/16 01:47; Start 05/11/16 at 01:30; Stop 05/11/16 at 02:29; Status DC Ondansetron HCl (Zofran) 4 mg PRN Q8HRS PRN IV NAUSEA/VOMITING; Start 05/11/16 at 02:00; Stop 05/12/16 at 01:59; Status DC Fentanyl Citrate (Fentanyl 2ml Vial) 50 mcg PRN Q2HR PRN IV SEVERE PAIN; Start 05/11/16 at 02:00; Stop 05/11/16 at 10:56; Status DC Acetaminophen 650 mg 650 mg PRN Q4HRS PRN PO FEVER Last administered on 23:00; Start 05/11/16 at 02:00; Stop 05/12/16 at 01:59; Status DC Potassium Chloride/Sodium Chloride (KCl 20 Meq-0.45% Nacl) 1,000 ml @ 150 mls/ hr 1X ONCE IV Last administered on 05/11/16 02:04; Start 05/11/16 at 02:00; Stop 05/11/16 at 08:39; Status DC Acetaminophen/ Hydrocodone Bitart 1 tab 1 tab PRN Q4HRS PRN PO PAIN Last administered on 05/12/16 20:06; Start 05/11/16 at 11:00 Ceftriaxone Sodium/Sodium Chloride (Rocephin/Iv Sodium Chloride 0.9% 50ml) 50 ml @ 100 mls/hr Q24H IV Last administered on 05/12/16 20:06; Start 05/11/16 at 21:00; Stop 05/13/16 at 08:41; Status DC Acetaminophen (Tylenol) 650 mg PRN Q6HRS PRN PO MILD PAIN / TEMP Last administered on 05/13/16 15:07; Start 05/12/16 at 05:45 Iohexol (Omnipaque 240 Mg/ml) 30 ml 1X ONCE PO ; Start 05/12/16 at 09:45; Stop 05/12/16 at 09:48; Status DC Iohexol (Omnipaque 300 Mg/ml) 75 ml 1X ONCE IV ; Start 05/12/16 at 09:45; Stop 05/12/16 at 09:48; Status DC Info (Do NOT chart on this entry -- for MONITORING) 1 each PRN DAILY PRN MC SEE COMMENTS; Start 05/12/16 at 10:00; Stop 05/14/16 at 09:59 Potassium Chloride 40 meq 40 meq 1X ONCE PO Last administered on 05/13/16 06: 15; Start 05/13/16 at 05:45; Stop 05/13/16 at 05:46; Status DC Meropenem/Sodium Chloride (Merrem/Iv Sodium Chloride 0.9% 50ml) 50 ml @ 100 mls /hr Q8HRS IV Last administered on 05/13/16 15:26; Start 05/13/16 at 14:00 Potassium Chloride (Klor-Con) 20 meq DAILYWBKFT PO ; Start 05/14/16 at 08:00 Potassium Chloride 40 meq 40 meq 1X ONCE PO Last administered on 05/13/16 11: 22; Start 05/13/16 at 11:00; Stop 05/13/16 at 11:01; Status DC Magnesium Sulfate/ Dextrose (Magnesium Sulfate PREMIX 2GM) 50 ml @ 25 mls/hr 1X ONCE IV Last administered on 05/13/16 13:57; Start 05/13/16 at 11:00; Stop 05/13/16 at 12:59; Status DC Active Scripts Active Cipro (Ciprofloxacin Hcl) 500 Mg Tablet 1 Tab PO BID Pyridium (Phenazopyridine Hcl) 200 Mg Tablet 200 Mg PO TID PRN Metronidazole 500 Mg Tablet 1 Tab PO BID 1 tablet by mouth twice daily for 7 days. First dose given in the emergency department. Keflex (Cephalexin) 500 Mg Capsule 1 Cap PO BID 1 tablet by mouth twice daily for 5 days to treat infection. First dose of medication given in the ED. [Vantin] 200 Mg PO BID Naproxen 500 Mg Tablet.dr 1 Tab PO BID Percocet 5-325 Mg Tablet (Oxycodone/Acetaminophen) 1 Each Tablet 1-2 Tab PO Q4- 6HRS Augmentin 875-125 Tablet (Amoxicillin/Potassium Clav) 1 Each Tablet 1 Tab PO BID Vitals/I & O Vital Sign - Last 24 Hours 05/12/16 05/12/16 05/12/16 05/12/16 19:00 20:00 20:06 21:06 Temp 103.1 103.1 Pulse 144 Resp 18 B/P 109/76 Pulse Ox 98 O2 Delivery Room Air Room Air Room Air Room Air 05/12/16 05/13/16 05/13/16 05/13/16 23:00 03:00 07:00 08:00 Temp 101.8 104.4 97.9 101.8 104.4 97.9 Pulse 101 103 72 Resp 18 18 16 B/P 99/63 107/65 103/67 Pulse Ox 97 94 98 O2 Delivery Room Air Room Air Room Air Room Air 05/13/16 05/13/16 11:19 15:16 Temp 98.1 101.7 98.1 101.7 Pulse 91 91 Resp 18 18 B/P 108/73 108/72 Pulse Ox 99 98 O2 Delivery Room Air Room Air Intake and Output 05/12/16 05/12/16 05/13/16 15:00 23:00 07:00 Intake Total 500 ml 800 ml Output Total 175 ml Balance 500 ml 800 ml -175 ml ZHENG MELARA MD May 13, 2016 15:37
[2016-05-13 19:00] VITALS: BP 104/66
[2016-05-13 23:03] VITALS: BP 111/67
[2016-05-14 03:11] VITALS: BP 101/59
[2016-05-14] MEDS: ACETAMINOPHEN 325 MG TABLET. PO PRN (04:57)
[2016-05-14] MEDS: MEROPENEM 500 MG in IV NORMAL SALINE 50ML 50 ML IV SCH ×3 (04:57→22:14)
[2016-05-14 07:25] VITALS: BP 100/59
[2016-05-14] MEDS: POTASSIUM CHLORIDE 20 MEQ TABLET.ER. PO SCH (08:12)
[2016-05-14 10:38] VITALS: BP 98/68
--- NOTE | 2016-05-14 10:45 | PDOC ---
Infectious Disease Note Subjective Subjective pt feeling better ROS ROS GEN: Denies fevers, chills, sweats HEENT: Denies blurred vision, sore throat CV: Denies chest pain RESP: Denies shortness of air, cough GI: Denies n/v/d NEURO: Denies confusion, dizziness MSK: Denies weakness, joint pain/swelling Vital Sign Vital Signs Vital Signs Date Time Temp Pulse Resp B/P Pulse Ox O2 Delivery O2 Flow Rate FiO2 05/14/16 08:00 Room Air 05/14/16 07:25 98.1 57 16 100/59 97 98.1 Physical Exam PHYSICAL EXAM GENERAL: NAD, Alert HEENT: PERRL, OC/OP NECK: Supple, no JVD, no LN LUNGS: Clear HEART: S1S2, no gallop, no murmur ABD: Soft, NT, no organomegaly, no rebound EXT: No edema, no cyanosis ANIMAL ASSISTED THERAPIST: Alert, oriented x 3, no focal neurologic deficit SKIN: No rash IV: ok Labs Lab Laboratory Tests Test 05/13/16 14:00 Urine Collection Type Unknown Urine Color Yellow Urine Clarity Clear Urine pH 6.5 Urine Specific [place] 1.010 Urine Protein Negativemg/dL (NEG-TRACE) Urine Glucose (UA) Negativemg/dL (NEG) Urine Ketones (Stick) Tracemg/dL (NEG) Urine Blood Small (NEG) Urine Nitrite Negative (NEG) Urine Bilirubin Negative (NEG) Urine Urobilinogen Dipstick 0.2mg/dL (0.2 mg/dL) Urine Leukocyte Esterase Small (NEG) Urine RBC Rare/HPF (0-2) Urine WBC 1-4/HPF (0-4) Urine Squamous Epithelial Cells Few/LPF Urine Bacteria 0/HPF (0-FEW) Micro G neg daisy Objective Assessment Fever UTI/Pylonephritis h/o fistula G neg daisy bacteremia Plan Plan of Care meropenem check cultures d/w AMARI Francis MD May 14, 2016 10:45
[2016-05-14 11:19] LABS: HEMATOCRIT 32.7 % (36.0-47.0); HEMOGLOBIN 10.7 g/dL (12.0-15.5); RED BLOOD COUNT 4.3 x10^6/uL (3.50-5.40); RED CELL DISTRIBUTION WIDTH 14.5 % (11.5-14.5); WHITE BLOOD COUNT 4.8 x10^3/uL (4.0-11.0)
[2016-05-14 11:29] LABS: CALCIUM 8.6 mg/dL (8.5-10.1); CREATININE 0.7 mg/dL (0.6-1.0); GFR 102.8
[2016-05-14 15:00] VITALS: BP 110/75
[2016-05-14 19:00] VITALS: BP 100/67
[2016-05-14] MEDS: HYDROCODONE/APAP 5/325MG TABLET. PO PRN (22:14)
[2016-05-14 22:37] VITALS: BP 111/68
[2016-05-15 03:00] VITALS: BP 104/67
[2016-05-15 04:56] LABS: BASO % 0 % (0-3); EOS % 4 % (0-3); HEMATOCRIT 31.6 % (36.0-47.0); HEMOGLOBIN 10.1 g/dL (12.0-15.5); LYMPH # 1.9 x10^3/uL (1.0-4.8); LYMPH % 36 % (24-48); MEAN CORPUSCULAR HEMOGLOBIN 25 pg (25-35); MEAN CORPUSCULAR HGB CONC 32 g/dL (31-37); MEAN CORPUSCULAR VOLUME 77 fL (79-100); MONO % 13 % (0-9); NEUT % 47 % (31-73); PLATELET COUNT 202 x10^3/uL (140-400); RED BLOOD COUNT 4.11 x10^6/uL (3.50-5.40); RED CELL DISTRIBUTION WIDTH 14.1 % (11.5-14.5); WHITE BLOOD COUNT 5.4 x10^3/uL (4.0-11.0)
[2016-05-15 05:31] LABS: ALBUMIN 2.5 g/dL (3.4-5.0); ALBUMIN/GLOBULIN RATIO 0.5 (1.0-1.7); CALCIUM 8.8 mg/dL (8.5-10.1); CREATININE 0.6 mg/dL (0.6-1.0); GFR 122.8; POTASSIUM 3.7 mmol/L (3.5-5.1); TOTAL BILIRUBIN 0.2 mg/dL (0.2-1.0); TOTAL PROTEIN 7.3 g/dL (6.4-8.2)
[2016-05-15] MEDS: MEROPENEM 500 MG in IV NORMAL SALINE 50ML 50 ML IV SCH ×3 (06:42→20:33)
[2016-05-15 07:00] VITALS: BP 107/67
[2016-05-15] MEDS: POTASSIUM CHLORIDE 20 MEQ TABLET.ER. PO SCH (09:09)
--- NOTE | 2016-05-15 10:45 | PDOC ---
Infectious Disease Note Subjective Subjective Comfortable, denies pain Appetite good No fever last 24 hours ROS ROS GEN: Denies chills, sweats CV: Denies chest pain RESP: Denies shortness of air, cough GI: Denies n/v/d Vital Sign Vital Signs Vital Signs Date Time Temp Pulse Resp B/P Pulse Ox O2 Delivery O2 Flow Rate FiO2 05/15/16 07:00 97.7 76 17 107/67 99 Room Air 97.7 Physical Exam PHYSICAL EXAM GENERAL: Alert, smiling LUNGS: Clear HEART: S1S2, no gallop, no murmur ABD: Soft, NT, BS present EXT: No edema, no cyanosis OBSTETRICS SCRUB NURSE: Alert, oriented x 3, no focal neurologic deficit SKIN: No rash IV: ok Labs Lab Laboratory Tests Test 05/14/16 10:55 05/15/16 04:21 05/15/16 04:45 White Blood Count 4.8x10^3/uL (4.0-11.0) 5.4x10^3/uL (4.0-11.0) Red Blood Count 4.30x10^6/uL (3.50-5.40) 4.11x10^6/uL (3.50-5.40) Hemoglobin 10.7g/dL (12.0-15.5) 10.1g/dL (12.0-15.5) Hematocrit 32.7% (36.0-47.0) 31.6% (36.0-47.0) Mean Corpuscular Volume 76fL (79-100) 77fL (79-100) Mean Corpuscular Hemoglobin 25pg (25-35) 25pg (25-35) Mean Corpuscular Hemoglobin Concent 33g/dL (31-37) 32g/dL (31-37) Red Cell Distribution Width 14.5% (11.5-14.5) 14.1% (11.5-14.5) Platelet Count 216x10^3/uL (140-400) 202x10^3/uL (140-400) Sodium Level 141mmol/L (136-145) 140mmol/L (136-145) Potassium Level 4.0mmol/L (3.5-5.1) 3.7mmol/L (3.5-5.1) Chloride Level 106mmol/L (98-107) 103mmol/L (98-107) Carbon Dioxide Level 24mmol/L (21-32) 26mmol/L (21-32) Anion Gap 11 (6-14) 11 (6-14) Blood Urea Nitrogen 10mg/dL (7-20) 9mg/dL (7-20) Creatinine 0.7mg/dL (0.6-1.0) 0.6mg/dL (0.6-1.0) Estimated GFR (Cockcroft-Gault) 102.8 122.8 Glucose Level 115mg/dL (70-99) 94mg/dL (70-99) Calcium Level 8.6mg/dL (8.5-10.1) 8.8mg/dL (8.5-10.1) Neutrophils (%) (Auto) 47% (31-73) Lymphocytes (%) (Auto) 36% (24-48) Monocytes (%) (Auto) 13% (0-9) Eosinophils (%) (Auto) 4% (0-3) Basophils (%) (Auto) 0% (0-3) Neutrophils # (Auto) 2.5x10^3uL (1.8-7.7) Lymphocytes # (Auto) 1.9x10^3/uL (1.0-4.8) Monocytes # (Auto) 0.7x10^3/uL (0.0-1.1) Eosinophils # (Auto) 0.2x10^3/uL (0.0-0.7) Basophils # (Auto) 0.0x10^3/uL (0.0-0.2) BUN/Creatinine Ratio 15 (6-20) Total Bilirubin 0.2mg/dL (0.2-1.0) Aspartate Amino Transf (AST/SGOT) 25U/L (15-37) Alanine Aminotransferase (ALT/SGPT) 36U/L (14-59) Alkaline Phosphatase 99U/L (46-116) Total Protein 7.3g/dL (6.4-8.2) Albumin 2.5g/dL (3.4-5.0) Albumin/Globulin Ratio 0.5 (1.0-1.7) Micro 05/13. BLOOD CULTURE Preliminary NO GROWTH AFTER 1 DAY 05/13. URINE CULTURE RES 1 Preliminary No growth after 18-24 hours. 05/11. BLD CULT RESULT 1 Final Escherichia coli MICS are expressed in micrograms per mL Antibiotic RSLT#1 Amoxicillin/Clavulanic Acid S Ampicillin R Cefepime S Ceftriaxone S Cefuroxime S Cephalothin S Ciprofloxacin S Ertapenem S Gentamicin S Imipenem S Levofloxacin S Nitrofurantoin S Piperacillin R Tetracycline R Tobramycin S Trimethoprim/Sulfa R Objective Assessment GNR sepsis. POA. E. coli Fever. better UTI/Pyelonephritis. E.coli from 05/10 h/o fistula Plan Plan of Care meropenem Supportive care Patient seen and examined. Chart reviewed in detail. 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
[2016-05-15 11:00] VITALS: BP 108/60
[2016-05-15] MEDS ORDERED: ONDANSETRON PF 4 MG/2 ML VIAL. IV PRN (12:30)
--- NOTE | 2016-05-15 12:30 | PDOC ---
PROGRESS NOTES Chief Complaint Chief Complaint sepsis UTI pyelonephritis flank pain microcytic anemia, iron deficient plan: 1. fu with id, bcx + ecoli, cont meropenum 2. dc home if ok with id add iron po History of Present Illness History of Present Illness ongoing feveres better now hypokelamia return Vitals Vitals Vital Signs Date Time Temp Pulse Resp B/P Pulse Ox O2 Delivery O2 Flow Rate FiO2 05/15/16 11:00 98.7 78 17 108/60 99 Room Air 98.7 Physical Exam General: Alert, Oriented X3, Cooperative Heart: Regular rate Lungs: Clear Abdomen: Normal bowel sounds, Soft Extremities: No clubbing, No cyanosis Skin: No breakdown Labs LABS Laboratory Tests Test 05/15/16 04:21 05/15/16 04:45 White Blood Count 5.4x10^3/uL (4.0-11.0) Red Blood Count 4.11x10^6/uL (3.50-5.40) Hemoglobin 10.1g/dL (12.0-15.5) Hematocrit 31.6% (36.0-47.0) Mean Corpuscular Volume 77fL (79-100) Mean Corpuscular Hemoglobin 25pg (25-35) Mean Corpuscular Hemoglobin Concent 32g/dL (31-37) Red Cell Distribution Width 14.1% (11.5-14.5) Platelet Count 202x10^3/uL (140-400) Neutrophils (%) (Auto) 47% (31-73) Lymphocytes (%) (Auto) 36% (24-48) Monocytes (%) (Auto) 13% (0-9) Eosinophils (%) (Auto) 4% (0-3) Basophils (%) (Auto) 0% (0-3) Neutrophils # (Auto) 2.5x10^3uL (1.8-7.7) Lymphocytes # (Auto) 1.9x10^3/uL (1.0-4.8) Monocytes # (Auto) 0.7x10^3/uL (0.0-1.1) Eosinophils # (Auto) 0.2x10^3/uL (0.0-0.7) Basophils # (Auto) 0.0x10^3/uL (0.0-0.2) Sodium Level 140mmol/L (136-145) Potassium Level 3.7mmol/L (3.5-5.1) Chloride Level 103mmol/L (98-107) Carbon Dioxide Level 26mmol/L (21-32) Anion Gap 11 (6-14) Blood Urea Nitrogen 9mg/dL (7-20) Creatinine 0.6mg/dL (0.6-1.0) Estimated GFR (Cockcroft-Gault) 122.8 BUN/Creatinine Ratio 15 (6-20) Glucose Level 94mg/dL (70-99) Calcium Level 8.8mg/dL (8.5-10.1) Total Bilirubin 0.2mg/dL (0.2-1.0) Aspartate Amino Transf (AST/SGOT) 25U/L (15-37) Alanine Aminotransferase (ALT/SGPT) 36U/L (14-59) Alkaline Phosphatase 99U/L (46-116) Total Protein 7.3g/dL (6.4-8.2) Albumin 2.5g/dL (3.4-5.0) Albumin/Globulin Ratio 0.5 (1.0-1.7) Review of Systems Review of Systems no fever, chills, sob or chest pain Assessment and Plan Assessmemt and Plan Problems Medical Problems: (1) Pyelonephritis Status: Acute (2) Sepsis Status: Acute (3) UTI (urinary tract infection) Status: Acute Problems: Comment Review of Relevant I have reviewed the following items nila (where applicable) has been applied. Labs Laboratory Tests Test 05/13/16 14:00 05/14/16 10:55 05/15/16 04:21 05/15/16 04:45 Urine Collection Type Unknown Urine Color Yellow Urine Clarity Clear Urine pH 6.5 Urine Specific [place] 1.010 Urine Protein Negativemg/dL (NEG-TRACE) Urine Glucose (UA) Negativemg/dL (NEG) Urine Ketones (Stick) Tracemg/dL (NEG) Urine Blood Small (NEG) Urine Nitrite Negative (NEG) Urine Bilirubin Negative (NEG) Urine Urobilinogen Dipstick 0.2mg/dL (0.2 mg/dL) Urine Leukocyte Esterase Small (NEG) Urine RBC Rare/HPF (0-2) Urine WBC 1-4/HPF (0-4) Urine Squamous Epithelial Cells Few/LPF Urine Bacteria 0/HPF (0-FEW) White Blood Count 4.8x10^3/uL (4.0-11.0) 5.4x10^3/uL (4.0-11.0) Red Blood Count 4.30x10^6/uL (3.50-5.40) 4.11x10^6/uL (3.50-5.40) Hemoglobin 10.7g/dL (12.0-15.5) 10.1g/dL (12.0-15.5) Hematocrit 32.7% (36.0-47.0) 31.6% (36.0-47.0) Mean Corpuscular Volume 76fL (79-100) 77fL (79-100) Mean Corpuscular Hemoglobin 25pg (25-35) 25pg (25-35) Mean Corpuscular Hemoglobin Concent 33g/dL (31-37) 32g/dL (31-37) Red Cell Distribution Width 14.5% (11.5-14.5) 14.1% (11.5-14.5) Platelet Count 216x10^3/uL (140-400) 202x10^3/uL (140-400) Sodium Level 141mmol/L (136-145) 140mmol/L (136-145) Potassium Level 4.0mmol/L (3.5-5.1) 3.7mmol/L (3.5-5.1) Chloride Level 106mmol/L (98-107) 103mmol/L (98-107) Carbon Dioxide Level 24mmol/L (21-32) 26mmol/L (21-32) Anion Gap 11 (6-14) 11 (6-14) Blood Urea Nitrogen 10mg/dL (7-20) 9mg/dL (7-20) Creatinine 0.7mg/dL (0.6-1.0) 0.6mg/dL (0.6-1.0) Estimated GFR (Cockcroft-Gault) 102.8 122.8 Glucose Level 115mg/dL (70-99) 94mg/dL (70-99) Calcium Level 8.6mg/dL (8.5-10.1) 8.8mg/dL (8.5-10.1) Neutrophils (%) (Auto) 47% (31-73) Lymphocytes (%) (Auto) 36% (24-48) Monocytes (%) (Auto) 13% (0-9) Eosinophils (%) (Auto) 4% (0-3) Basophils (%) (Auto) 0% (0-3) Neutrophils # (Auto) 2.5x10^3uL (1.8-7.7) Lymphocytes # (Auto) 1.9x10^3/uL (1.0-4.8) Monocytes # (Auto) 0.7x10^3/uL (0.0-1.1) Eosinophils # (Auto) 0.2x10^3/uL (0.0-0.7) Basophils # (Auto) 0.0x10^3/uL (0.0-0.2) BUN/Creatinine Ratio 15 (6-20) Total Bilirubin 0.2mg/dL (0.2-1.0) Aspartate Amino Transf (AST/SGOT) 25U/L (15-37) Alanine Aminotransferase (ALT/SGPT) 36U/L (14-59) Alkaline Phosphatase 99U/L (46-116) Total Protein 7.3g/dL (6.4-8.2) Albumin 2.5g/dL (3.4-5.0) Albumin/Globulin Ratio 0.5 (1.0-1.7) Laboratory Tests Test 05/15/16 04:21 05/15/16 04:45 White Blood Count 5.4x10^3/uL (4.0-11.0) Red Blood Count 4.11x10^6/uL (3.50-5.40) Hemoglobin 10.1g/dL (12.0-15.5) Hematocrit 31.6% (36.0-47.0) Mean Corpuscular Volume 77fL (79-100) Mean Corpuscular Hemoglobin 25pg (25-35) Mean Corpuscular Hemoglobin Concent 32g/dL (31-37) Red Cell Distribution Width 14.1% (11.5-14.5) Platelet Count 202x10^3/uL (140-400) Neutrophils (%) (Auto) 47% (31-73) Lymphocytes (%) (Auto) 36% (24-48) Monocytes (%) (Auto) 13% (0-9) Eosinophils (%) (Auto) 4% (0-3) Basophils (%) (Auto) 0% (0-3) Neutrophils # (Auto) 2.5x10^3uL (1.8-7.7) Lymphocytes # (Auto) 1.9x10^3/uL (1.0-4.8) Monocytes # (Auto) 0.7x10^3/uL (0.0-1.1) Eosinophils # (Auto) 0.2x10^3/uL (0.0-0.7) Basophils # (Auto) 0.0x10^3/uL (0.0-0.2) Sodium Level 140mmol/L (136-145) Potassium Level 3.7mmol/L (3.5-5.1) Chloride Level 103mmol/L (98-107) Carbon Dioxide Level 26mmol/L (21-32) Anion Gap 11 (6-14) Blood Urea Nitrogen 9mg/dL (7-20) Creatinine 0.6mg/dL (0.6-1.0) Estimated GFR (Cockcroft-Gault) 122.8 BUN/Creatinine Ratio 15 (6-20) Glucose Level 94mg/dL (70-99) Calcium Level 8.8mg/dL (8.5-10.1) Total Bilirubin 0.2mg/dL (0.2-1.0) Aspartate Amino Transf (AST/SGOT) 25U/L (15-37) Alanine Aminotransferase (ALT/SGPT) 36U/L (14-59) Alkaline Phosphatase 99U/L (46-116) Total Protein 7.3g/dL (6.4-8.2) Albumin 2.5g/dL (3.4-5.0) Albumin/Globulin Ratio 0.5 (1.0-1.7) Microbiology 05/13/16 Blood Culture - Preliminary, Resulted NO GROWTH AFTER 1 DAY 05/13/16 Urine Culture - Preliminary, Resulted 05/13/16 Urine Culture Result 1 (MAURICIO) - Preliminary, Resulted Medications Current Medications Sodium Chloride 1,000 ml @ 1,000 mls/hr Q1H IV Last administered on 05/11/16t 00:25; Start 05/11/16 at 00:21; Stop 05/11/16 at 01:20; Status DC Ceftriaxone Sodium 1 gm/ Sodium Chloride 50 ml @ 100 mls/hr 1X STAT IV ; Start 05/11/16 at 00:27; Stop 05/11/16 at 00:56; Status UNV Ceftriaxone Sodium (Rocephin 1gm Ivpb For Omni) 50 ml @ 100 mls/hr 1X ONCE IV Last administered on 05/11/16 00:34; Start 05/11/16 at 00:30; Stop 05/11/16 at 00:59; Status DC Potassium Chloride 40 meq 40 meq 1X ONCE PO Last administered on 05/11/16 00: 49; Start 05/11/16 at 01:00; Stop 05/11/16 at 01:01; Status DC Sodium Chloride (Iv Sodium Chloride 0.9% 1000ml Bag) 1,000 ml @ 1,000 mls/hr 1X ONCE IV Last administered on 05/11/16 01:47; Start 05/11/16 at 01:30; Stop 05/11/16 at 02:29; Status DC Ondansetron HCl (Zofran) 4 mg PRN Q8HRS PRN IV NAUSEA/VOMITING; Start 05/11/16 at 02:00; Stop 05/12/16 at 01:59; Status DC Fentanyl Citrate (Fentanyl 2ml Vial) 50 mcg PRN Q2HR PRN IV SEVERE PAIN; Start 05/11/16 at 02:00; Stop 05/11/16 at 10:56; Status DC Acetaminophen 650 mg 650 mg PRN Q4HRS PRN PO FEVER Last administered on 23:00; Start 05/11/16 at 02:00; Stop 05/12/16 at 01:59; Status DC Potassium Chloride/Sodium Chloride (KCl 20 Meq-0.45% Nacl) 1,000 ml @ 150 mls/ hr 1X ONCE IV Last administered on 05/11/16 02:04; Start 05/11/16 at 02:00; Stop 05/11/16 at 08:39; Status DC Acetaminophen/ Hydrocodone Bitart 1 tab 1 tab PRN Q4HRS PRN PO PAIN Last administered on 05/14/16 22:14; Start 05/11/16 at 11:00 Ceftriaxone Sodium/Sodium Chloride (Rocephin/Iv Sodium Chloride 0.9% 50ml) 50 ml @ 100 mls/hr Q24H IV Last administered on 05/12/16 20:06; Start 05/11/16 at 21:00; Stop 05/13/16 at 08:41; Status DC Acetaminophen (Tylenol) 650 mg PRN Q6HRS PRN PO MILD PAIN / TEMP Last administered on 05/14/16 04:57; Start 05/12/16 at 05:45 Iohexol (Omnipaque 240 Mg/ml) 30 ml 1X ONCE PO ; Start 05/12/16 at 09:45; Stop 05/12/16 at 09:48; Status DC Iohexol (Omnipaque 300 Mg/ml) 75 ml 1X ONCE IV ; Start 05/12/16 at 09:45; Stop 05/12/16 at 09:48; Status DC Info (Do NOT chart on this entry -- for MONITORING) 1 each PRN DAILY PRN MC SEE COMMENTS; Start 05/12/16 at 10:00; Stop 05/14/16 at 09:59; Status DC Potassium Chloride 40 meq 40 meq 1X ONCE PO Last administered on 05/13/16 06: 15; Start 05/13/16 at 05:45; Stop 05/13/16 at 05:46; Status DC Meropenem/Sodium Chloride (Merrem/Iv Sodium Chloride 0.9% 50ml) 50 ml @ 100 mls /hr Q8HRS IV Last administered on 05/15/16 06:42; Start 05/13/16 at 14:00 Potassium Chloride (Klor-Con) 20 meq DAILYWBKFT PO Last administered on 09:09; Start 05/14/16 at 08:00 Potassium Chloride 40 meq 40 meq 1X ONCE PO Last administered on 05/13/16 11: 22; Start 05/13/16 at 11:00; Stop 05/13/16 at 11:01; Status DC Magnesium Sulfate/ Dextrose (Magnesium Sulfate PREMIX 2GM) 50 ml @ 25 mls/hr 1X ONCE IV Last administered on 05/13/16 13:57; Start 05/13/16 at 11:00; Stop 05/13/16 at 12:59; Status DC Active Scripts Active Cipro (Ciprofloxacin Hcl) 500 Mg Tablet 1 Tab PO BID Pyridium (Phenazopyridine Hcl) 200 Mg Tablet 200 Mg PO TID PRN Metronidazole 500 Mg Tablet 1 Tab PO BID 1 tablet by mouth twice daily for 7 days. First dose given in the emergency department. Keflex (Cephalexin) 500 Mg Capsule 1 Cap PO BID 1 tablet by mouth twice daily for 5 days to treat infection. First dose of medication given in the ED. [Vantin] 200 Mg PO BID Naproxen 500 Mg Tablet.dr 1 Tab PO BID Percocet 5-325 Mg Tablet (Oxycodone/Acetaminophen) 1 Each Tablet 1-2 Tab PO Q4- 6HRS Augmentin 875-125 Tablet (Amoxicillin/Potassium Clav) 1 Each Tablet 1 Tab PO BID Vitals/I & O Vital Sign - Last 24 Hours 05/14/16 05/14/16 05/14/16 05/14/16 15:00 19:00 20:00 22:14 Temp 97.9 99.8 97.9 99.8 Pulse 84 93 Resp 18 18 B/P 110/75 100/67 Pulse Ox 99 93 93 O2 Delivery Room Air Room Air Room Air Room Air 05/14/16 05/14/16 05/15/16 05/15/16 22:37 23:14 03:00 07:00 Temp 99.1 96.4 97.7 99.1 96.4 97.7 Pulse 76 57 76 Resp 18 18 17 B/P 111/68 104/67 107/67 Pulse Ox 98 98 98 99 O2 Delivery Room Air Room Air Room Air Room Air 05/15/16 11:00 Temp 98.7 98.7 Pulse 78 Resp 17 B/P 108/60 Pulse Ox 99 O2 Delivery Room Air Intake and Output 05/14/16 05/14/16 05/15/16 15:00 23:00 07:00 Intake Total 300 ml 980 ml 2000 ml Balance 300 ml 980 ml 2000 ml WICHO MARTÍNEZ MD May 15, 2016 12:30
[2016-05-15 15:00] VITALS: BP 101/70
[2016-05-15] MEDS: FERROUS SULFATE 325 MG TABLET PO SCH (17:15)
[2016-05-15 19:00] VITALS: BP 107/80
[2016-05-15] MEDS: HYDROCODONE/APAP 5/325MG TABLET. PO PRN (20:33)
[2016-05-15 23:00] VITALS: BP 103/69
[2016-05-16] VITALS (7 sets, daily range): BP systolic 92–112; BP diastolic 54–72
[2016-05-16 05:27] LABS: BASO % 1 % (0-3); EOS % 4 % (0-3); HEMATOCRIT 32.3 % (36.0-47.0); HEMOGLOBIN 10.3 g/dL (12.0-15.5); LYMPH # 2.1 x10^3/uL (1.0-4.8); LYMPH % 36 % (24-48); MEAN CORPUSCULAR HEMOGLOBIN 25 pg (25-35); MEAN CORPUSCULAR HGB CONC 32 g/dL (31-37); MEAN CORPUSCULAR VOLUME 77 fL (79-100); MONO % 10 % (0-9); NEUT % 50 % (31-73); PLATELET COUNT 253 x10^3/uL (140-400); RED BLOOD COUNT 4.19 x10^6/uL (3.50-5.40); RED CELL DISTRIBUTION WIDTH 13.9 % (11.5-14.5); WHITE BLOOD COUNT 5.8 x10^3/uL (4.0-11.0)
[2016-05-16] MEDS: MEROPENEM 500 MG in IV NORMAL SALINE 50ML 50 ML IV SCH ×3 (05:30→21:31)
[2016-05-16] MEDS: FERROUS SULFATE 325 MG TABLET PO SCH ×2 (09:29→16:57)
[2016-05-16] MEDS: POTASSIUM CHLORIDE 20 MEQ TABLET.ER. PO SCH (09:30)
--- NOTE | 2016-05-16 13:05 | PDOC ---
PROGRESS NOTES Chief Complaint Chief Complaint sepsis UTI pyelonephritis flank pain microcytic anemia, iron deficient plan: 1. fu with id, bcx + ecoli, cont meropenum 2. dc home if ok with id add iron po History of Present Illness History of Present Illness ongoing feveres, off 2ds hypokelamia return Vitals Vitals Vital Signs Date Time Temp Pulse Resp B/P Pulse Ox O2 Delivery O2 Flow Rate FiO2 05/16/16 10:47 96.8 78 18 112/72 98 Room Air 96.8 Physical Exam General: Alert, Oriented X3, Cooperative Heart: Regular rate Lungs: Clear Abdomen: Normal bowel sounds, Soft Extremities: No clubbing, No cyanosis Skin: No breakdown Labs LABS Laboratory Tests Test 05/16/16 04:55 White Blood Count 5.8x10^3/uL (4.0-11.0) Red Blood Count 4.19x10^6/uL (3.50-5.40) Hemoglobin 10.3g/dL (12.0-15.5) Hematocrit 32.3% (36.0-47.0) Mean Corpuscular Volume 77fL (79-100) Mean Corpuscular Hemoglobin 25pg (25-35) Mean Corpuscular Hemoglobin Concent 32g/dL (31-37) Red Cell Distribution Width 13.9% (11.5-14.5) Platelet Count 253x10^3/uL (140-400) Neutrophils (%) (Auto) 50% (31-73) Lymphocytes (%) (Auto) 36% (24-48) Monocytes (%) (Auto) 10% (0-9) Eosinophils (%) (Auto) 4% (0-3) Basophils (%) (Auto) 1% (0-3) Neutrophils # (Auto) 2.9x10^3uL (1.8-7.7) Lymphocytes # (Auto) 2.1x10^3/uL (1.0-4.8) Monocytes # (Auto) 0.6x10^3/uL (0.0-1.1) Eosinophils # (Auto) 0.2x10^3/uL (0.0-0.7) Basophils # (Auto) 0.0x10^3/uL (0.0-0.2) C-Reactive Protein, Quantitative 41.3mg/L (0-3.3) Review of Systems Review of Systems no fever, chills, sob or chest pain Assessment and Plan Assessmemt and Plan Problems Medical Problems: (1) Pyelonephritis Status: Acute (2) Sepsis Status: Acute (3) UTI (urinary tract infection) Status: Acute Problems: Comment Review of Relevant I have reviewed the following items nila (where applicable) has been applied. Labs Laboratory Tests Test 05/15/16 04:21 05/15/16 04:45 05/16/16 04:55 White Blood Count 5.4x10^3/uL (4.0-11.0) 5.8x10^3/uL (4.0-11.0) Red Blood Count 4.11x10^6/uL (3.50-5.40) 4.19x10^6/uL (3.50-5.40) Hemoglobin 10.1g/dL (12.0-15.5) 10.3g/dL (12.0-15.5) Hematocrit 31.6% (36.0-47.0) 32.3% (36.0-47.0) Mean Corpuscular Volume 77fL (79-100) 77fL (79-100) Mean Corpuscular Hemoglobin 25pg (25-35) 25pg (25-35) Mean Corpuscular Hemoglobin Concent 32g/dL (31-37) 32g/dL (31-37) Red Cell Distribution Width 14.1% (11.5-14.5) 13.9% (11.5-14.5) Platelet Count 202x10^3/uL (140-400) 253x10^3/uL (140-400) Neutrophils (%) (Auto) 47% (31-73) 50% (31-73) Lymphocytes (%) (Auto) 36% (24-48) 36% (24-48) Monocytes (%) (Auto) 13% (0-9) 10% (0-9) Eosinophils (%) (Auto) 4% (0-3) 4% (0-3) Basophils (%) (Auto) 0% (0-3) 1% (0-3) Neutrophils # (Auto) 2.5x10^3uL (1.8-7.7) 2.9x10^3uL (1.8-7.7) Lymphocytes # (Auto) 1.9x10^3/uL (1.0-4.8) 2.1x10^3/uL (1.0-4.8) Monocytes # (Auto) 0.7x10^3/uL (0.0-1.1) 0.6x10^3/uL (0.0-1.1) Eosinophils # (Auto) 0.2x10^3/uL (0.0-0.7) 0.2x10^3/uL (0.0-0.7) Basophils # (Auto) 0.0x10^3/uL (0.0-0.2) 0.0x10^3/uL (0.0-0.2) Sodium Level 140mmol/L (136-145) Potassium Level 3.7mmol/L (3.5-5.1) Chloride Level 103mmol/L (98-107) Carbon Dioxide Level 26mmol/L (21-32) Anion Gap 11 (6-14) Blood Urea Nitrogen 9mg/dL (7-20) Creatinine 0.6mg/dL (0.6-1.0) Estimated GFR (Cockcroft-Gault) 122.8 BUN/Creatinine Ratio 15 (6-20) Glucose Level 94mg/dL (70-99) Calcium Level 8.8mg/dL (8.5-10.1) Total Bilirubin 0.2mg/dL (0.2-1.0) Aspartate Amino Transf (AST/SGOT) 25U/L (15-37) Alanine Aminotransferase (ALT/SGPT) 36U/L (14-59) Alkaline Phosphatase 99U/L (46-116) Total Protein 7.3g/dL (6.4-8.2) Albumin 2.5g/dL (3.4-5.0) Albumin/Globulin Ratio 0.5 (1.0-1.7) C-Reactive Protein, Quantitative 41.3mg/L (0-3.3) Laboratory Tests Test 05/16/16 04:55 White Blood Count 5.8x10^3/uL (4.0-11.0) Red Blood Count 4.19x10^6/uL (3.50-5.40) Hemoglobin 10.3g/dL (12.0-15.5) Hematocrit 32.3% (36.0-47.0) Mean Corpuscular Volume 77fL (79-100) Mean Corpuscular Hemoglobin 25pg (25-35) Mean Corpuscular Hemoglobin Concent 32g/dL (31-37) Red Cell Distribution Width 13.9% (11.5-14.5) Platelet Count 253x10^3/uL (140-400) Neutrophils (%) (Auto) 50% (31-73) Lymphocytes (%) (Auto) 36% (24-48) Monocytes (%) (Auto) 10% (0-9) Eosinophils (%) (Auto) 4% (0-3) Basophils (%) (Auto) 1% (0-3) Neutrophils # (Auto) 2.9x10^3uL (1.8-7.7) Lymphocytes # (Auto) 2.1x10^3/uL (1.0-4.8) Monocytes # (Auto) 0.6x10^3/uL (0.0-1.1) Eosinophils # (Auto) 0.2x10^3/uL (0.0-0.7) Basophils # (Auto) 0.0x10^3/uL (0.0-0.2) C-Reactive Protein, Quantitative 41.3mg/L (0-3.3) Microbiology 05/13/16 Blood Culture - Preliminary, Resulted NO GROWTH AFTER 2 DAYS 05/13/16 Urine Culture - Final, Complete 05/13/16 Urine Culture Result 1 (MAURICIO) - Final, Complete Medications Current Medications Sodium Chloride 1,000 ml @ 1,000 mls/hr Q1H IV Last administered on 05/11/16 00:25; Start 05/11/16 at 00:21; Stop 05/11/16 at 01:20; Status DC Ceftriaxone Sodium 1 gm/ Sodium Chloride 50 ml @ 100 mls/hr 1X STAT IV ; Start 05/11/16 at 00:27; Stop 05/11/16 at 00:56; Status UNV Ceftriaxone Sodium (Rocephin 1gm Ivpb For Omni) 50 ml @ 100 mls/hr 1X ONCE IV Last administered on 05/11/16 00:34; Start 05/11/16 at 00:30; Stop 05/11/16 at 00:59; Status DC Potassium Chloride 40 meq 40 meq 1X ONCE PO Last administered on 05/11/16 00: 49; Start 05/11/16 at 01:00; Stop 05/11/16 at 01:01; Status DC Sodium Chloride (Iv Sodium Chloride 0.9% 1000ml Bag) 1,000 ml @ 1,000 mls/hr 1X ONCE IV Last administered on 05/11/16 01:47; Start 05/11/16 at 01:30; Stop 05/11/16 at 02:29; Status DC Ondansetron HCl (Zofran) 4 mg PRN Q8HRS PRN IV NAUSEA/VOMITING; Start 05/11/16 at 02:00; Stop 05/12/16 at 01:59; Status DC Fentanyl Citrate (Fentanyl 2ml Vial) 50 mcg PRN Q2HR PRN IV SEVERE PAIN; Start 05/11/16 at 02:00; Stop 05/11/16 at 10:56; Status DC Acetaminophen 650 mg 650 mg PRN Q4HRS PRN PO FEVER Last administered on 23:00; Start 05/11/16 at 02:00; Stop 05/12/16 at 01:59; Status DC Potassium Chloride/Sodium Chloride (KCl 20 Meq-0.45% Nacl) 1,000 ml @ 150 mls/ hr 1X ONCE IV Last administered on 05/11/16 02:04; Start 05/11/16 at 02:00; Stop 05/11/16 at 08:39; Status DC Acetaminophen/ Hydrocodone Bitart 1 tab 1 tab PRN Q4HRS PRN PO PAIN Last administered on 05/15/16 20:33; Start 05/11/16 at 11:00 Ceftriaxone Sodium/Sodium Chloride (Rocephin/Iv Sodium Chloride 0.9% 50ml) 50 ml @ 100 mls/hr Q24H IV Last administered on 05/12/16 20:06; Start 05/11/16 at 21:00; Stop 05/13/16 at 08:41; Status DC Acetaminophen (Tylenol) 650 mg PRN Q6HRS PRN PO MILD PAIN / TEMP Last administered on 05/14/16 04:57; Start 05/12/16 at 05:45 Iohexol (Omnipaque 240 Mg/ml) 30 ml 1X ONCE PO ; Start 05/12/16 at 09:45; Stop 05/12/16 at 09:48; Status DC Iohexol (Omnipaque 300 Mg/ml) 75 ml 1X ONCE IV ; Start 05/12/16 at 09:45; Stop 05/12/16 at 09:48; Status DC Info (Do NOT chart on this entry -- for MONITORING) 1 each PRN DAILY PRN MC SEE COMMENTS; Start 05/12/16 at 10:00; Stop 05/14/16 at 09:59; Status DC Potassium Chloride 40 meq 40 meq 1X ONCE PO Last administered on 05/13/16 06: 15; Start 05/13/16 at 05:45; Stop 05/13/16 at 05:46; Status DC Meropenem/Sodium Chloride (Merrem/Iv Sodium Chloride 0.9% 50ml) 50 ml @ 100 mls /hr Q8HRS IV Last administered on 05/16/16 05:30; Start 05/13/16 at 14:00 Potassium Chloride (Klor-Con) 20 meq DAILYWBKFT PO Last administered on 09:30; Start 05/14/16 at 08:00 Potassium Chloride 40 meq 40 meq 1X ONCE PO Last administered on 05/13/16 11: 22; Start 05/13/16 at 11:00; Stop 05/13/16 at 11:01; Status DC Magnesium Sulfate/ Dextrose (Magnesium Sulfate PREMIX 2GM) 50 ml @ 25 mls/hr 1X ONCE IV Last administered on 05/13/16 13:57; Start 05/13/16 at 11:00; Stop 05/13/16 at 12:59; Status DC Ondansetron HCl (Zofran) 4 mg PRN Q6HRS PRN IV NAUSEA/VOMITING; Start 05/15/16 at 12:30 Ferrous Sulfate (Feosol) 325 mg BIDWMEALS PO Last administered on 05/16/16 09: 29; Start 05/15/16 at 17:00 Active Scripts Active Cipro (Ciprofloxacin Hcl) 500 Mg Tablet 1 Tab PO BID Pyridium (Phenazopyridine Hcl) 200 Mg Tablet 200 Mg PO TID PRN Metronidazole 500 Mg Tablet 1 Tab PO BID 1 tablet by mouth twice daily for 7 days. First dose given in the emergency department. Keflex (Cephalexin) 500 Mg Capsule 1 Cap PO BID 1 tablet by mouth twice daily for 5 days to treat infection. First dose of medication given in the ED. [Vantin] 200 Mg PO BID Naproxen 500 Mg Tablet.dr 1 Tab PO BID Percocet 5-325 Mg Tablet (Oxycodone/Acetaminophen) 1 Each Tablet 1-2 Tab PO Q4- 6HRS Augmentin 875-125 Tablet (Amoxicillin/Potassium Clav) 1 Each Tablet 1 Tab PO BID Vitals/I & O Vital Sign - Last 24 Hours 05/15/16 05/15/16 05/15/16 05/15/16 15:00 19:00 20:20 20:33 Temp 97.5 96.6 97.5 96.6 Pulse 89 82 Resp 17 20 B/P 101/70 107/80 Pulse Ox 97 100 100 O2 Delivery Room Air Room Air Room Air Room Air 05/15/16 05/15/16 05/16/16 05/16/16 21:33 23:00 03:15 07:00 Temp 97.6 98.0 97.7 97.6 98.0 97.7 Pulse 71 64 63 Resp 20 20 18 B/P 103/69 92/54 103/71 Pulse Ox 100 97 97 99 O2 Delivery Room Air Room Air Room Air Room Air 05/16/16 10:47 Temp 96.8 96.8 Pulse 78 Resp 18 B/P 112/72 Pulse Ox 98 O2 Delivery Room Air Intake and Output 05/15/16 05/15/16 05/16/16 15:00 23:00 07:00 Intake Total 400 ml 1050 ml 770 ml Balance 400 ml 1050 ml 770 ml WICHO MARTÍNEZ MD May 16, 2016 13:05
[2016-05-16] MEDS: IRON SUCROSE COMPLEX 200 MG in IV NORMAL SALINE 100ML 100 ML IV SCH (14:15)
--- NOTE | 2016-05-16 15:15 | PDOC ---
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, pt is feeling well comfortable, denies pain or upset stomach No fever last 24 hours Vital Sign Vital Signs Vital Signs Date Time Temp Pulse Resp B/P Pulse Ox O2 Delivery O2 Flow Rate FiO2 05/16/16 10:47 96.8 78 18 112/72 98 Room Air 96.8 Physical Exam PHYSICAL EXAM GENERAL: Alert, smiling LUNGS: Clear HEART: S1S2, no gallop, no murmur ABD: Soft, NT, BS present EXT: No edema, no cyanosis CARDIOTHORACIC SURGEON: Alert, oriented x 3, no focal neurologic deficit SKIN: No rash IV: ok Labs Lab Laboratory Tests Test 05/16/16 04:55 White Blood Count 5.8x10^3/uL (4.0-11.0) Red Blood Count 4.19x10^6/uL (3.50-5.40) Hemoglobin 10.3g/dL (12.0-15.5) Hematocrit 32.3% (36.0-47.0) Mean Corpuscular Volume 77fL (79-100) Mean Corpuscular Hemoglobin 25pg (25-35) Mean Corpuscular Hemoglobin Concent 32g/dL (31-37) Red Cell Distribution Width 13.9% (11.5-14.5) Platelet Count 253x10^3/uL (140-400) Neutrophils (%) (Auto) 50% (31-73) Lymphocytes (%) (Auto) 36% (24-48) Monocytes (%) (Auto) 10% (0-9) Eosinophils (%) (Auto) 4% (0-3) Basophils (%) (Auto) 1% (0-3) Neutrophils # (Auto) 2.9x10^3uL (1.8-7.7) Lymphocytes # (Auto) 2.1x10^3/uL (1.0-4.8) Monocytes # (Auto) 0.6x10^3/uL (0.0-1.1) Eosinophils # (Auto) 0.2x10^3/uL (0.0-0.7) Basophils # (Auto) 0.0x10^3/uL (0.0-0.2) C-Reactive Protein, Quantitative 41.3mg/L (0-3.3) Micro 05/13. BLOOD CULTURE Preliminary NO GROWTH AFTER 3 DAY 05/13. URINE CULTURE RES 1 Final No growth in 48 hours. 05/11. BLD CULT RESULT 1 Final Escherichia coli MICS are expressed in micrograms per mL Antibiotic RSLT#1 Amoxicillin/Clavulanic Acid S Ampicillin R Cefepime S Ceftriaxone S Cefuroxime S Cephalothin S Ciprofloxacin S Ertapenem S Gentamicin S Imipenem S Levofloxacin S Nitrofurantoin S Piperacillin R Tetracycline R Tobramycin S Trimethoprim/Sulfa R Objective Assessment GNR sepsis. POA. E. coli Fever. better UTI/Pyelonephritis. E.coli from 05/10 h/o fistula Plan Plan of Care meropenem anticipate d/c soon. will confer with Dr. Bynum Supportive care Patient seen and examined. Chart reviewed. Case discussed with REAL ESTATE ACQUISITION ANALYST. CT result viewed. Agree with above plan. Patients CRP still extremely elevated. She is only 5 days since the last negative c/s Re-evaluate in AM JEFFERSON LOVETT APRN May 16, 2016 15:15 JOSSY BYNUM MD May 16, 2016 16:07
[2016-05-17 03:00] VITALS: BP 103/63
[2016-05-17] MEDS: MEROPENEM 500 MG in IV NORMAL SALINE 50ML 50 ML IV SCH (05:53)
[2016-05-17 07:20] VITALS: BP 102/66
[2016-05-17] MEDS: POTASSIUM CHLORIDE 20 MEQ TABLET.ER. PO SCH (08:33)
[2016-05-17] MEDS: IRON SUCROSE COMPLEX 200 MG in IV NORMAL SALINE 100ML 100 ML IV SCH (08:33)
[2016-05-17] MEDS: FERROUS SULFATE 325 MG TABLET PO SCH (08:33)
--- NOTE | 2016-05-17 09:37 | PDOC ---
Infectious Disease Note Subjective Subjective via japanese interpreter, pt is feeling well comfortable, denies pain or upset stomach No fever last 24 hours ROS ROS GEN: Denies fevers, chills, sweats HEENT: Denies blurred vision, sore throat CV: Denies chest pain RESP: Denies shortness of air, cough GI: Denies n/v/d NEURO: Denies confusion, dizziness MSK: Denies weakness, joint pain/swelling Vital Sign Vital Signs Vital Signs Date Time Temp Pulse Resp B/P Pulse Ox O2 Delivery O2 Flow Rate FiO2 05/17/16 07:20 97.9 66 18 102/66 97 Room Air 97.9 Physical Exam PHYSICAL EXAM GENERAL: NAD, Alert HEENT: PERRL, OC/OP NECK: Supple, no JVD, no LN LUNGS: Clear HEART: S1S2, no gallop, no murmur ABD: Soft, NT, no organomegaly, no rebound EXT: No edema, no cyanosis COPS: Alert, oriented x 3, no focal neurologic deficit SKIN: No rash IV: ok Labs Lab Laboratory Tests Test 05/17/16 04:20 C-Reactive Protein, Quantitative 25.6mg/L (0-3.3) Micro G neg daisy Objective Assessment Fever UTI/Pylonephritis h/o fistula G neg daisy bacteremia Plan Plan of Care d/c on AMARI Howe MD May 17, 2016 09:37
[2016-05-17] MEDS ORDERED: CIPROFLOXACIN HCL 250 MG TABLET PO SCH (10:00)
[2016-05-17 10:35] VITALS: BP 111/72
[2016-05-17] MEDS ORDERED: FERR-26 PO (12:28)
== END 2016-05-17 13:18 | disposition home or self-care (01) | DRG 871 ==
LOC: ER 00:01 → 2 NORTH 01:30 → 1 WEST ICU 06:05 → 5 NORTH 13:10
PROVIDERS: ADMIT Internal Medicine; ATTEND Internal Medicine
DX: A41.9 Sepsis, unspecified organism (principal); E43 Unspecified severe protein-calorie malnutrition; N12 Tubulo-interstitial nephritis, not specified as acute or chronic; A41.50 Gram-negative sepsis, unspecified; D50.9 Iron deficiency anemia, unspecified; E87.6 Hypokalemia; B96.20 Unspecified Escherichia coli [E. coli] as the cause of diseases classified elsewhere; M54.5 Low back pain; Z90.710 Acquired absence of both cervix and uterus; Z68.23 Body mass index [BMI] 23.0-23.9, adult
CPT/HCPCS: 36415; 74177; 80048; 80053; 81001; 83540; 83550; 83605; 84132; 84145; 85007; 85027; 86140; 87040; 87086; 87186; 87205; 87641; 87804; 93005; 96361; 96365; J0690; J0696; J1756; J2185; J7030; J7060; 99285-25

== ENCOUNTER 2017-01-16 13:14 | Emergency (ER) | payer OTHER ==
[~2017-01-16] VITALS: Ht 149.9 cm; Wt 54.4 kg
[~2017-01-16 13:14] MED LIST changes: +FERR-26 PO; -METR500T4 PO; +METR500T8 PO
[2017-01-16 13:45] LABS: BILIRUBIN,URINE NEGATIVE (NEG); GLUCOSE,URINE NEGATIVE (NEG); NITRITE,URINE NEGATIVE (NEG); PROTEIN,URINE NEGATIVE (NEG-TRACE)
[2017-01-16 13:55] LABS: BACTERIA,URINE FEW /HPF (0-FEW); RBC,URINE 0 /HPF (0-2); SQUAMOUS EPITHELIAL CELL,UR MOD /LPF
[2017-01-16 14:30] LABS: BASO % 0 % (0-3); EOS % 3 % (0-3); HEMATOCRIT 42.7 % (36.0-47.0); LYMPH # 1.3 x10^3/uL (1.0-4.8); LYMPH % 18 % (24-48); MEAN CORPUSCULAR HEMOGLOBIN 26 pg (25-35); MEAN CORPUSCULAR HGB CONC 33 g/dL (31-37); MEAN CORPUSCULAR VOLUME 80 fL (79-100); MONO % 6 % (0-9); NEUT % 72 % (31-73); PLATELET COUNT 238 x10^3/uL (140-400); RED BLOOD COUNT 5.31 x10^6/uL (3.50-5.40); RED CELL DISTRIBUTION WIDTH 13.1 % (11.5-14.5)
[2017-01-16 14:39] LABS: CREATININE 0.7 mg/dL (0.6-1.0); POTASSIUM 3.3 mmol/L (3.5-5.1)
--- NOTE | 2017-01-16 14:42 | RAD ---
KUB History:Left-sided abdominal pain for 2 days Comparison: 05/30/2015 Findings:AP supine portable view of the abdomen is submitted. Exam is insufficient for the evaluation for free air. There is a nonobstructive bowel gas pattern. Impression: 1.There is nonobstructive bowel gas pattern.
[2017-01-16 14:46] LABS: TOTAL BILIRUBIN 0.3 mg/dL (0.2-1.0)
--- NOTE | 2017-01-16 14:53 | PHYS DOC ---
Past Medical History Past Medical History: UTI, Other Additional Past Medical Histor: COMPLICATIONS WITH ,UROSEPSIS Past Surgical History: , Hysterectomy Alcohol Use: None Drug Use: None Adult General Chief Complaint Chief Complaint: ABDOMINAL PAIN HPI HPI Patient is a 26 year old female, Kittitian speaking, who presents ambulatory to the ED with the complaint of abdominal pain for 4 days. 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 Patient states she has had abdominal pain on the left side of her mid abdomen and left flank area for 4 days. It has not changed in location. It has been constant. This is similar to abdominal pain she has had before. She denies UTI symptoms. She denies nausea or vomiting. Denies fever or chills. She does not know what medications she is taking. She believes she might be on an antibiotic. PCP Dr. Mcdonald Chart reviewed. Patient was hospitalized several months ago for presumed sepsis , she did have a positive blood culture for Escherichia coli, her urine did not grow out anything. She has had a hysterectomy related to childbirth and I believe had some type of related urologic surgery. She has not had recurrent problems since then. ED are in called the pharmacy and that was the last time she has had any antibiotics filled as well. She has not been on antibiotics for months per the pharmacy. Review of Systems Review of Systems Constitutional: Denies fever or chills [] GI: As in history of present illness : Denies dysuria or hematuria [] Musculoskeletal: Denies back pain or joint pain [] All other systems were reviewed and found to be within normal limits, except as documented in this note. Current Medications Current Medications Current Medications Medications (Trade) Dose Ordered Sig/Geni Start Time Stop Time Status Last Admin Dose Admin Magnesium Citrate (Citroma) 296 ml 1X ONCE 01/16/17 15:00 01/16/17 15:01 DC 01/16/17 15:04 296 ML Allergies Allergies Allergies Coded Allergies Type Severity Reaction Last Updated Verified No Known Drug Allergies 05/29/15 No Physical Exam Physical Exam Constitutional: Well developed, well nourished, no acute distress, non-toxic appearance. Ambulatory, alert, mentating normally, warm and dry, entirely nontoxic in appearance, afebrile. HENT: Normocephalic, atraumatic, bilateral external ears normal, nose normal. [ ] Eyes: conjunctiva normal, no discharge. [] Neck: Normal range of motion, no stridor. [] Cardiovascular:Heart rate regular rhythm, no murmur [] Lungs & Thorax: Bilateral breath sounds clear to auscultation [] Abdomen: Bowel sounds normal, soft, nondistended, no masses, no pulsatile masses. Mild tenderness to palpation in the left mid abdomen and the left side of the abdomen. No guarding or rebound. Benign, nonspecific abdominal exam. Skin: Warm, dry, no erythema, no rash. [] Extremities: No tenderness, no cyanosis, no clubbing, ROM intact, no edema. [] Neurologic: Alert and oriented X 3, normal motor function, no focal deficits noted. [] Current Patient Data Vital Signs Vital Signs Date Time Temp Pulse Resp B/P (MAP) Pulse Ox O2 Delivery O2 Flow Rate FiO2 01/16/17 15:00 78 18 105/66 (79) 100 Room Air 01/16/17 13:25 98.6 98.6 Lab Values Laboratory Tests Test 01/16/17 13:25 01/16/17 13:29 01/16/17 14:21 Urine Collection Type Unknown Urine Color Yellow Urine Clarity Clear Urine pH 7.0 Urine Specific [place] 1.025 Urine Protein Negative mg/dL (NEG-TRACE) Urine Glucose (UA) Negative mg/dL (NEG) Urine Ketones (Stick) Negative mg/dL (NEG) Urine Blood Negative (NEG) Urine Nitrite Negative (NEG) Urine Bilirubin Negative (NEG) Urine Urobilinogen Dipstick 1.0 mg/dL (0.2 mg/dL) Urine Leukocyte Esterase Trace (NEG) Urine RBC 0 /HPF (0-2) Urine WBC 1-4 /HPF (0-4) Urine Squamous Epithelial Cells Mod /LPF Urine Bacteria Few /HPF (0-FEW) Urine Mucus Mod /LPF POC Urine HCG, Qualitative Hcg negative (Negative) White Blood Count 7.0 x10^3/uL (4.0-11.0) Red Blood Count 5.31 x10^6/uL (3.50-5.40) Hemoglobin 14.0 g/dL (12.0-15.5) Hematocrit 42.7 % (36.0-47.0) Mean Corpuscular Volume 80 fL (79-100) Mean Corpuscular Hemoglobin 26 pg (25-35) Mean Corpuscular Hemoglobin Concent 33 g/dL (31-37) Red Cell Distribution Width 13.1 % (11.5-14.5) Platelet Count 238 x10^3/uL (140-400) Neutrophils (%) (Auto) 72 % (31-73) Lymphocytes (%) (Auto) 18 % (24-48) L Monocytes (%) (Auto) 6 % (0-9) Eosinophils (%) (Auto) 3 % (0-3) Basophils (%) (Auto) 0 % (0-3) Neutrophils # (Auto) 5.1 x10^3uL (1.8-7.7) Lymphocytes # (Auto) 1.3 x10^3/uL (1.0-4.8) Monocytes # (Auto) 0.4 x10^3/uL (0.0-1.1) Eosinophils # (Auto) 0.2 x10^3/uL (0.0-0.7) Basophils # (Auto) 0.0 x10^3/uL (0.0-0.2) Sodium Level 140 mmol/L (136-145) Potassium Level 3.3 mmol/L (3.5-5.1) L Chloride Level 105 mmol/L (98-107) Carbon Dioxide Level 26 mmol/L (21-32) Anion Gap 9 (6-14) Blood Urea Nitrogen 14 mg/dL (7-20) Creatinine 0.7 mg/dL (0.6-1.0) Estimated GFR (Cockcroft-Gault) 102.0 BUN/Creatinine Ratio 20 (6-20) Glucose Level 95 mg/dL (70-99) Calcium Level 9.0 mg/dL (8.5-10.1) Total Bilirubin 0.3 mg/dL (0.2-1.0) Aspartate Amino Transferase (AST) 18 U/L (15-37) Alanine Aminotransferase (ALT) 20 U/L (14-59) Alkaline Phosphatase 69 U/L (46-116) Total Protein 8.0 g/dL (6.4-8.2) Albumin 4.0 g/dL (3.4-5.0) Albumin/Globulin Ratio 1.0 (1.0-1.7) Lipase 123 U/L (73-393) Laboratory Tests 01/16/17 14:21 Laboratory Tests 01/16/17 14:21 EKG EKG [] Radiology/Procedures Radiology/Procedures One view abdomen read by the radiologist, reviewed by me. Nonspecific bowel gas pattern. Moderate amount of stool in the colon with nonspecific distribution.[] Course & Med Decision Making Course & Med Decision Making Pertinent Labs and Imaging studies reviewed. (See chart for details) 26-year-old female who appears nontoxic, ambulatory, with a benign exam, presents with left sided abdominal pain and mild tenderness for 4 days. Labs, exam, x-ray are unremarkable. Urinalysis negative for infection. Although the patient in the past did have sepsis presumed urology etiology, she does not appear to have that today. The patient does not appear to have a serious problem going on today. We will treat her for possible constipation. Return precautions were emphasized. [] Dragon Disclaimer Dragon Disclaimer This electronic medical record was generated, in whole or in part, using a voice recognition dictation system. Departure Departure Impression: Primary Impression: Abdominal pain Disposition: HOME, SELF-CARE Condition: STABLE Referrals: NO PCP (PCP) Additional Instructions: Today you do not have a urinary tract infection, you do not have a kidney infection or a bladder infection. We do not need to put you on an antibiotic. Blood tests did not show anything serious causing your pain. I recommend that we give you a laxative to see if that will help your pain. Drink one half bottle of magnesium citrate when you get home, drink the second half bottle before bedtime tonight if you have not had good results before then. We want you to have 2 or 3 large bowel movements from the laxative to see if that helps your pain. If your pain gets worse, or if that does not help in one to 2 days, see your doctor or return. ARIC GRANDE MD Jan 16, 2017 14:53
[2017-01-16 15:00] VITALS: BP 105/66
[2017-01-16] MEDS ORDERED: MAGNESIUM CITRATE 296 ML SOLUTION. PO ONE (15:00)
== END 2017-01-16 15:09 | disposition home or self-care (01) ==
LOC: ER 13:14
DX: R10.9 Unspecified abdominal pain (principal); Z87.440 Personal history of urinary (tract) infections; Z98.890 Other specified postprocedural states; Z90.710 Acquired absence of both cervix and uterus
CPT/HCPCS: 36415; 74000; 80053; 81001; 81025; 83690; 85025; 87086; 99285-25

== ENCOUNTER 2019-11-01 20:11 | Emergency (ER) | payer BC, OTHER ==
[~2019-11-01] VITALS: Ht 157.5 cm; Wt 59.0 kg
[~2019-11-01 20:11] MED LIST changes: -FERR-26 PO; +FERR325T14 PO; +METR-34 PO; -METR500T8 PO; -OXYC-323 PO; +OXYC1TAB15 PO
[2019-11-01 21:20] VITALS: BP 121/72
[2019-11-01] MEDS ORDERED: POLY10DR OP (21:29)
--- NOTE | 2019-11-01 21:30 | PHYS DOC ---
Past Medical History Past Medical History: UTI, Other Additional Past Medical Histor: COMPLICATIONS WITH ,UROSEPSIS Past Surgical History: , Hysterectomy Smoking Status: Never Smoker Alcohol Use: None Drug Use: None General Adult EDM: Chief Complaint: EYE PROBLEMS HPI: HPI: The history was obtained from the patient. Patient is a 28-year-old female with no reported PMH who presents with a chief complaint of left eye discomfort. Patient states she is had slowly progressive left eye discomfort for the past week. She notes that her eye is somewhat red. She notes purulent drainage particularly worse in the morning. She denies any fevers. She denies any periorbital tenderness. She denies any acute vision changes other than blurred vision due to tearing eyes. She states she was seen at urgent care 1 week ago and given allergic conjunctivitis eyedrops. She has not been on any antibiotics. Denies any contact lens usage. Denies any recent eye procedures or surgeries. Denies trauma to the eye. Denies headaches. No other complaints. Review of Systems: Review of Systems: Constitutional: Denies fever or chills. [] Eyes: Positive for conjunctivitis HENT: Denies nasal congestion or sore throat. [] Respiratory: Denies cough or shortness of breath. [] Cardiovascular: Denies chest pain or edema. [] GI: Denies abdominal pain, nausea, vomiting, bloody stools or diarrhea. [] : Denies dysuria. [] Musculoskeletal: Denies back pain or joint pain. [] Integument: Denies rash. [] Neurologic: Denies headache, focal weakness or sensory changes. [] Endocrine: Denies polyuria or polydipsia. [] Lymphatic: Denies swollen glands. [] Psychiatric: Denies depression or anxiety. [] Heart Score: Risk Factors: Risk Factors: DM, Current or recent (<one month) smoker, HTN, HLP, family history of CAD, obesity. Risk Scores: Score 0 - 3: 2.5% MACE over next 6 weeks - Discharge Home Score 4 - 6: 20.3% MACE over next 6 weeks - Admit for Clinical Observation Score 7 - 10: 72.7% MACE over next 6 weeks - Early Invasive Strategies Allergies: Allergies: Allergies Coded Allergies Type Severity Reaction Last Updated Verified No Known Drug Allergies 05/29/15 No Physical Exam: PE: Constitutional: Well developed, well nourished, no acute distress, non-toxic appearance. [] HENT: Normocephalic, atraumatic, bilateral external ears normal, oropharynx moist, no oral exudates, nose normal. [] Eyes: PERRLA, EOMI, conjunctiva normal, no discharge. [] Neck: Normal range of motion, no tenderness, supple, no stridor. [] Cardiovascular:Heart rate regular rhythm, no murmur [] Lungs & Thorax: Bilateral breath sounds clear to auscultation [] Abdomen: Bowel sounds normal, soft, no tenderness, no masses, no pulsatile masses. [] Skin: Warm, dry, no erythema, no rash. [] Back: No tenderness, no CVA tenderness. [] Extremities: No tenderness, no cyanosis, no clubbing, ROM intact, no edema. [] Neurologic: Alert and oriented X 3, normal motor function, normal sensory function, no focal deficits noted. [] Psychologic: Affect normal, judgement normal, mood normal. [] EYES: 20/30 OD 20/50 OS 20/50 OU. There are no visual field deficits. L ophthalmic exam: The periorbital region has no erythema or tenderness.. There no tenderness to the bone(s) of the orbital rim. There is no proptosis. There is no blepharedema. The margins of the eyelid are intact without lacerations. The lacrimal system appears intact. EOMI without evidence of entrapment. Cornea is clear without hyphema or hypopyon. Conjunctiva is injected. There is no subconjunctival hemorrhage. EKG: EKG: [] Radiology/Procedures: Radiology/Procedures: [] Course & Med Decision Making: Course & Med Decision Making Pertinent Labs and Imaging studies reviewed. (See chart for details) Patient is overall well-appearing 28-year-old female presents with chief complaint of red and painful left eye. Clinical exam consistent with bacterial conjunctivitis. Low suspicion for emergent etiology. Patient will be discharged home with Polytrim eyedrops. Visual acuity within normal limits with both eyes. She was instructed to return in 2 to 3 days if her symptoms not improve. Stable for discharge home. Dragon Disclaimer: Jennifer Disclaimer: This electronic medical record was generated, in whole or in part, using a voice recognition dictation system. Departure Departure Impression: Primary Impression: Conjunctivitis Qualified Codes: H10.32 - Unspecified acute conjunctivitis, left eye Disposition: 01 HOME, SELF-CARE Condition: STABLE Referrals: NO PCP (PCP) Patient Instructions: Bacterial Conjunctivitis Additional Instructions: Please return the emergency department to 3 days if your symptoms do not improve. Please follow-up with your primary care physician in the next 2 to 3 days as well. [facility] [address] [place] [address] [facility] [address] [place] [address] [facility] [address] [facility] [place] [address] [facility] [address] [place] [address] [facility] [address] [place] [address] [facility] [address] [place] [address] [facility] [address] [place] [address] [facility] [address] [place] [address] [facility] [address] [place] [address] [facility] [address] [place] [address] Scripts Polymyxin B Sulf/Trimethoprim (POLYTRIM EYE DROPS) 10 Ml Drops 10 ML OP Q3HRS for conjunctivitis for 7 Days, #1 UNIT Prov: REGGIE CHINCHILLA DO 11/01/19 Justicifation of Admission Dx: Justifications for Admission: Justification of Admission Dx: N/A REGGIE CHINCHILLA DO Nov 01, 2019 21:30
== END 2019-11-01 21:47 | disposition home or self-care (01) ==
LOC: ER 20:11
DX: H10.32 Unspecified acute conjunctivitis, left eye (principal)
CPT/HCPCS: 99283